=== PATIENT | female | born 1970 | race Caucasian/White ===

== ENCOUNTER 2017-05-06 19:15 | Emergency (ER) | payer MEDICARE, MEDICAID ==
[~2017-05-06] VITALS: Ht 165.1 cm; Wt 99.0 kg
[~2017-05-06 19:15] MED LIST: ALBU2.5I INH; ATEN-100 PO; GLUCTAB PO; HYDR12.56 PO; IPRAAER INH; LOVA20TA PO; NEXI40CA PO; TIZA2CAP PO; Z.0.OXYGEN INH
[2017-05-06 19:18] VITALS: BP 133/71; PULSE 78; RESP 16; TEMP 98.7; O2SAT 97
[2017-05-06] MEDS ORDERED: ACETAMINOPHEN 325 MG TAB PO ONE (19:30)
[2017-05-06] MEDS ORDERED: FLUT1INH7 INH (19:36)
[2017-05-06] MEDS ORDERED: LOVA20TA PO (19:36)
[2017-05-06] MEDS ORDERED: GABA300C5 PO (19:36)
[2017-05-06] MEDS ORDERED: LISI10TA3 PO (19:36)
[2017-05-06] MEDS ORDERED: NEXI40CA PO (19:36)
[2017-05-06] MEDS ORDERED: IPRAAER INH (19:36)
[2017-05-06] MEDS ORDERED: TOPA25TA8 PO (19:36)
--- NOTE | 2017-05-06 19:46 | PD ---
HPI Chief Complaint: Injury Time Seen by Provider: 19:41 Travel History International Travel<30 days: No Contact w/Intl Traveler<30days: No Traveled to known affect area: No History of Present Illness HPI 47-year-old white female presents emergency Department with complaints of right ankle pain after an inversion injury going up a set of stairs prior to arrival. She states that she heard a pop not a crack. She thinks that she may have torn a ligament or possibly fractured her ankle. Patient reports an injury last week to her right ankle and was seen at [facility] an x-ray was performed at that time. She was given Francisco wrap and crutches. She was given a prescription for Ultram which she has not filled yet. She has been taking Tylenol. She states the pain is moderate. She is unable to bear weight. She did not fall to the ground. No other injuries. No head, neck or back injury. PFSH Past Medical History Arthritis: Yes Asthma: Yes Blood Disorders: No Heart Rhythm Problems: Yes (ANGINA) Cancer: No Cardiac Catheterization: No Cardiovascular Problems: Yes High Cholesterol: Yes Chemotherapy: No Congestive Heart Failure: No COPD: Yes Diabetes: Yes Patient Takes Glucophage: No Endocrine: No Gastrointestinal Disorders: Yes (CROHNS DISEASE) GERD: Yes Gout: Yes Genitourinary: No Hepatitis: No Hiatal Hernia: No Hypertension: Yes Immune Disorder: No Musculoskeletal: No Neurologic: No Psychiatric: No Reproductive: No Respiratory: Yes Myocardial Infarction: Yes Radiation Therapy: No Sleep Apnea: Yes ( O2 AT NIGHT) Ulcer: No Tetanus Vaccination: < 5 Years Influenza Vaccination: No ?: Not Menopausal: Yes : 7 Para: 3 Miscarriage: 3 : 1 Tubal Ligation: Yes Past Surgical History Abdominal Surgery: Yes (LOWER ABD/ulcer) AICD: No Appendectomy: No Arteriovenous Shunt: No Cardiac Surgery: No Section: Yes (X 2) Cholecystectomy: No Coronary Artery Bypass Graft: No Ear Surgery: No Endocrine Surgery: No Eye Surgery: No Genitourinary Surgery: No Gynecologic Surgery: Yes (ABLATION) Insulin Pump: No Joint Replacement: No Oral Surgery: No Pacemaker: No Thoracic Surgery: No Tonsillectomy: Yes Other Surgery: Yes (BANDED HEMMRHOID) Family History Family Myocardial Infarction: Yes (FATHER) Social History Alcohol Use: No Tobacco Use: No (QUIT MARCH 29, ) Substance Use: No Allergies-Medications (Allergen,Severity, Reaction): Coded Allergies: Morphine (Verified Allergy, Severe, Anaphylaxis, 05/06/17) Ofloxacin (Verified Allergy, Severe, Anaphylaxis, 05/06/17) Aspirin (Verified Allergy, Intermediate, Rash, 05/06/17) RED RAISED RASH Codeine (Verified Allergy, Intermediate, Rash, 05/06/17) Uncoded Allergies: VICODIN (Allergy, Severe, Anaphylaxis, 11/20/06) ORAGEL (Allergy, Intermediate, Rash, 09/05/14) red wine (Allergy, Mild, 05/06/17) Reported Meds & Prescriptions Reported Meds & Active Scripts Active Reported Topamax (Topiramate) 25 Mg Tab 25 Mg PO PRN PRN Gabapentin 300 Mg Cap 300 Mg PO BID Nexium (Esomeprazole DR) 40 Mg Capdr 40 Mg PO BID Combivent Respimat Inh (Ipratropium-Albuterol Inh) 20-100 Care Home/Act Aero 2 Puff INH DAILY Breo Ellipta Inh (Fluticasone/Vilanterol) 200-25 Mcg/Act Inh 1 Puff INH DAILY Use daily at the same time. Lovastatin 20 Mg Tab 20 Mg PO DAILY Lisinopril 10 Mg Tab 10 Mg PO DAILY Review of Systems Except as stated in HPI: all other systems reviewed are Neg Physical Exam Narrative GENERAL: This is a morbidly obese, well-developed patient, in no apparent distress. SKIN: No rashes, ecchymoses or lesions. Warm and dry. HEAD: Atraumatic. Normocephalic. EYES: PERRL, EOMI, no discharge or injection. No scleral icterus. EARS: Clear NOSE: Nasal turbinates appear normal. THROAT: Mucosa pink and moist. Airway patent. NECK: Trachea midline. supple, moves head freely. LUNGS: Clear to auscultation. CV: Regular in rhythm. ABDOMEN: Soft nontender. EXT: No clubbing cyanosis. Examination of the right lower extremity reveals diffuse swelling in the ankle with tenderness to the anterior talar fibular as well as her deltoid ligaments of the ankle. There is no significant pain over the medial lateral malleolus. No pain in the Achilles or heel. No distal forefoot pain. Toes are normal. Skin is intact. No erythema. She has good pulses asleep. Good Refill. No pain in the or hip. The left lower extremity as well as upper extremities are unremarkable for acute bony tenderness or deformity. Data Data Last Documented VS Vital Signs Date Time Temp Pulse Resp B/P Pulse Ox O2 Delivery O2 Flow Rate FiO2 05/06/17 19:27 18 Room Air 05/06/17 19:18 98.7 78 133/71 97 Orders Ankle, Complete ([id number]) (05/06/17 19:29) Ice/Cold Pack (05/06/17 19:29) Acetaminophen (Tylenol) (05/06/17 19:30) Tramadol (Ultram) (05/06/17 20:30) Splint Or Brace Apply/Monitor (05/06/17 20:23) MDM Medical Decision Making Medical Screen Exam Complete: Yes Emergency Medical Condition: Yes Medical Record Reviewed: Yes Interpretation(s) Right ankle: Negative for acute fracture Differential Diagnosis MDM: High Differential diagnoses: Fracture, sprain, strain, dislocation, contusion, neurovascular injury Narrative Course Patient's given ice pack, 650 Tylenol by mouth. X-ray of the right ankle. Diagnosis Primary Impression: Right ankle sprain Qualified Code: S93.401A - Sprain of right ankle, unspecified ligament, initial encounter Patient Instructions: General Instructions Additional Instructions: Rest. Elevation. Ice packs for the next 3 days. Cam Walker and crutches. No weight-bearing and then progress to weight-bearing as tolerated. Medications as directed Follow-up with an orthopedist or your doctor in one week. Return to the ER if any problems Med/Other Pt SpecificInfo: No Change to Meds Disposition: 01 DISCHARGE HOME Condition: Stable Dru Meade May 06, 2017 19:46
[2017-05-06] MEDS ORDERED: traMADol HCL 50 MG TAB PO ONE (20:30)
--- NOTE | 2017-05-06 20:40 | RADRPT ---
EXAM DATE/TIME: 05/06/2017 20:00 [facility] COMPARISON: No previous studies available for comparison. INDICATIONS : Ankle pain, rolled ankle walking down stairs. MEDICAL HISTORY : None. SURGICAL HISTORY : None. ENCOUNTER: Initial ACUITY: 1 day PAIN SCORE: 10/10 LOCATION: Right ankle FINDINGS: The examination was performed. There is prominent soft tissue swelling about the medial and lateral aspect of the ankle. The osseous structures are grossly intact radiocarpal mortise is intact. No fr acture seen. No radiopaque foreign bodies. CONCLUSION: Prominent soft tissue swelling about the ankle. No fracture seen. Nick Macdonald MD on May 06, 2017 at 20:22 Board Certified Radiologist. This report was verified electronically.
== END 2017-05-06 22:17 | disposition home or self-care (01) ==
LOC: NEPD 19:15
DX: S93.401A Sprain of unspecified ligament of right ankle, initial encounter (principal); X50.1XXA Overexertion from prolonged static or awkward postures, initial encounter; J45.909 Unspecified asthma, uncomplicated; J44.9 Chronic obstructive pulmonary disease, unspecified; E11.9 Type 2 diabetes mellitus without complications; K21.9 Gastro-esophageal reflux disease without esophagitis; I10 Essential (primary) hypertension; I25.2 Old myocardial infarction
CPT/HCPCS: 73610; 99283; E0113; L2114

== ENCOUNTER 2017-07-15 11:02 | Emergency (ER) | payer MEDICARE, MEDICAID ==
[~2017-07-15 11:02] MED LIST changes: -ALBU2.5I INH; -ATEN-100 PO; +FLUT1INH7 INH; +GABA300C5 PO; -GLUCTAB PO; -HYDR12.56 PO; +LISI10TA3 PO; -TIZA2CAP PO; +TOPA25TA8 PO; -Z.0.OXYGEN INH
[2017-07-15 13:10] LABS: BICARBONATE 27.2 MEQ/L (21.0-32.0)
[2017-07-15 13:21] LABS: AUTOMATED NEUTROPHIL # 3.2 TH/MM3 (1.8-7.7); BASOPHIL % 0.7 % (0.0-2.0); EOSINOPHIL # 0.1 TH/MM3 (0-0.4); EOSINOPHIL % 1.8 % (0.0-4.0); HEMATOCRIT 33.9 % (35.0-46.0); HEMO FLAGS DIFF FINAL; LYMPHOCYTE # 2.6 TH/MM3 (1.0-4.8); MEAN CELL VOLUME 86.7 FL (80.0-100.0); MEAN CORPUSCULAR HEMOGLOBIN 28.5 PG (27.0-34.0); MEAN CORPUSCULAR HGB CONC 32.9 % (32.0-36.0); MONO % 8.3 % (0.0-8.0); NEUT % 49.2 % (16.0-70.0); PLATELET COUNT 209 TH/MM3 (150-450); RED BLOOD COUNT 3.91 MIL/MM3 (4.00-5.30); RED CELL DISTRIBUTION WIDTH 14.9 % (11.6-17.2); WHITE BLOOD COUNT 6.5 TH/MM3 (4.0-11.0)
[2017-07-15 13:49] LABS: BLOOD, URINE NEG (NEG); COMMENT (UR) CULT NOT INDICATED; CULTURE IF INDICATED CULT NOT INDICATED; GLUCOSE,URINE NEG (NEG); KETONE, URINE NEG (NEG); MUCUS URINE FEW /lpf (OCC); NITRITE,URINE NEG (NEG); PH, URINE 5.5 (5.0-8.5); SQUAMOUS EPITHELIAL CELL URINE 3 /hpf (0-5); URINE COLOR YELLOW (YELLW/STRAW)
--- NOTE | 2017-07-15 14:49 | PD ---
HPI Chief Complaint: Abdominal Pain Time Seen by Provider: 13:22 Travel History International Travel<30 days: No Contact w/Intl Traveler<30days: No Traveled to known affect area: No History of Present Illness HPI Patient is a 47 year old female who comes in complaining of right sided abdominal pain. She says the pain started 4 days ago and got worse today. She says she has nausea and vomiting as well as diarrhea. She says she has had " low grade fever" of 99.9 or 100. She denies any dysuria. She denies any radiation of the pain. PFSH Past Medical History Arthritis: Yes Asthma: Yes Blood Disorders: No Heart Rhythm Problems: Yes (ANGINA) Cancer: No Cardiac Catheterization: No Cardiovascular Problems: Yes High Cholesterol: Yes Chemotherapy: No Congestive Heart Failure: No COPD: Yes Diabetes: Yes Endocrine: No Gastrointestinal Disorders: Yes (CROHNS DISEASE) GERD: Yes Gout: Yes Genitourinary: No Hepatitis: No Hiatal Hernia: No Hypertension: Yes Immune Disorder: No Musculoskeletal: No Neurologic: No Psychiatric: No Reproductive: No Respiratory: Yes Myocardial Infarction: Yes Radiation Therapy: No Sleep Apnea: Yes ( O2 AT NIGHT) Ulcer: No Menopausal: Yes : 7 Para: 3 Miscarriage: 3 : 1 Tubal Ligation: Yes Past Surgical History Abdominal Surgery: Yes (LOWER ABD/ulcer) AICD: No Appendectomy: No Arteriovenous Shunt: No Cardiac Surgery: No Section: Yes (X 2) Cholecystectomy: No Coronary Artery Bypass Graft: No Ear Surgery: No Endocrine Surgery: No Eye Surgery: No Genitourinary Surgery: No Gynecologic Surgery: Yes (ABLATION) Insulin Pump: No Joint Replacement: No Oral Surgery: No Pacemaker: No Thoracic Surgery: No Tonsillectomy: Yes Other Surgery: Yes (BANDED HEMMRHOID) Social History Alcohol Use: No Tobacco Use: No (QUIT MARCH 29, ) Substance Use: No Allergies-Medications (Allergen,Severity, Reaction): Coded Allergies: morphine (Unverified Allergy, Severe, Anaphylaxis, 07/10/17) ofloxacin (Unverified Allergy, Severe, Anaphylaxis, 07/10/17) aspirin (Unverified Allergy, Intermediate, Rash, 07/10/17) RED RAISED RASH codeine (Unverified Allergy, Intermediate, Rash, 07/10/17) Uncoded Allergies: VICODIN (Allergy, Severe, Anaphylaxis, 11/20/06) ORAGEL (Allergy, Intermediate, Rash, 09/05/14) red wine (Allergy, Mild, 05/06/17) Reported Meds & Prescriptions Reported Meds & Active Scripts Active Reported Topamax (Topiramate) 25 Mg Tab 25 Mg PO PRN PRN Gabapentin 300 Mg Cap 300 Mg PO BID Nexium (Esomeprazole DR) 40 Mg Capdr 40 Mg PO BID Combivent Respimat Inh (Ipratropium-Albuterol Inh) 20-100 Alf/Act Aero 2 Puff INH DAILY Breo Ellipta Inh (Fluticasone/Vilanterol) 200-25 Mcg/Act Inh 1 Puff INH DAILY Use daily at the same time. Lovastatin 20 Mg Tab 20 Mg PO DAILY Lisinopril 10 Mg Tab 10 Mg PO DAILY Review of Systems Except as stated in HPI: all other systems reviewed are Neg General / Constitutional: Positive: Fever HENT: No: Headaches, Lightheadedness Cardiovascular: No: Chest Pain or Discomfort Respiratory: No: Shortness of Breath Gastrointestinal: Positive: Nausea, Vomiting, Diarrhea, Abdominal Pain Genitourinary: No: Dysuria, Flank Pain Musculoskeletal: No: Edema, Pain Skin: No Rash, No Change in Pigmentation Neurologic: No: Weakness, Dizziness Physical Exam Narrative GENERAL: Awake and alert, in no acute distress. SKIN: Focused skin assessment warm/dry. HEAD: Atraumatic. Normocephalic. EYES: Pupils equal and round. No scleral icterus. ENT: No nasal bleeding or discharge. Mucous membranes pink and moist. NECK: Trachea midline. No JVD. CARDIOVASCULAR: Regular rate and rhythm. No murmur appreciated. RESPIRATORY: No accessory muscle use. Clear to auscultation. Breath sounds equal bilaterally. GASTROINTESTINAL: Abdomen soft, nondistended. Tender to palpation of the RLQ, no rebound or guarding. MUSCULOSKELETAL: No obvious deformities. No clubbing. No cyanosis. No edema. NEUROLOGICAL: Awake and alert. No obvious cranial nerve deficits. Motor grossly within normal limits. Normal speech. PSYCHIATRIC: Appropriate mood and affect; insight and judgment normal. Data Data Orders Orders Urinalysis - C+S If Indicated (07/15/17 11:50) Complete Blood Count With Diff (07/15/17 11:50) Basic Metabolic Profile, Op (07/15/17 11:50) Lipase (07/15/17 11:50) Ct Abd/Pel W/O Iv Contrast (07/15/17 11:52) Iohexol 350 Inj (Omnipaque 350 Inj) (07/15/17 14:50) Ct Abd/Pel W Iv Contrast(Rout) (07/15/17 ) Labs Laboratory Tests Test 07/15/17 11:50 White Blood Count 6.5 TH/MM3 Red Blood Count 3.91 MIL/MM3 Hemoglobin 11.1 GM/DL Hematocrit 33.9 % Mean Corpuscular Volume 86.7 FL Mean Corpuscular Hemoglobin 28.5 PG Mean Corpuscular Hemoglobin Concent 32.9 % Red Cell Distribution Width 14.9 % Platelet Count 209 TH/MM3 Mean Platelet Volume 9.5 FL Neutrophils (%) (Auto) 49.2 % Lymphocytes (%) (Auto) 40.0 % Monocytes (%) (Auto) 8.3 % Eosinophils (%) (Auto) 1.8 % Basophils (%) (Auto) 0.7 % Neutrophils # (Auto) 3.2 TH/MM3 Lymphocytes # (Auto) 2.6 TH/MM3 Monocytes # (Auto) 0.5 TH/MM3 Eosinophils # (Auto) 0.1 TH/MM3 Basophils # (Auto) 0.0 TH/MM3 CBC Comment DIFF FINAL Differential Comment Urine Color YELLOW Urine Turbidity HAZY Urine pH 5.5 Urine Specific [place] 1.018 Urine Protein NEG mg/dL Urine Glucose (UA) NEG mg/dL Urine Ketones NEG mg/dL Urine Occult Blood NEG Urine Nitrite NEG Urine Bilirubin NEG Urine Urobilinogen LESS THAN 2.0 MG/DL Urine Leukocyte Esterase SMALL Urine RBC 1 /hpf Urine WBC 3 /hpf Urine Squamous Epithelial Cells 3 /hpf Urine Mucus FEW /lpf Microscopic Urinalysis Comment CULT NOT INDICATED Sodium Level 142 MEQ/L Potassium Level 4.0 MEQ/L Chloride Level 108 MEQ/L Carbon Dioxide Level 27.2 MEQ/L Anion Gap 7 MEQ/L Blood Urea Nitrogen 13 MG/DL Creatinine 0.69 MG/DL Estimat Glomerular Filtration Rate 90 ML/MIN Fasting Glucose 152 MG/DL Calcium Level 8.8 MG/DL Lipase 228 U/L [facility] Medical Decision Making Medical Screen Exam Complete: Yes Emergency Medical Condition: Yes Medical Record Reviewed: Yes Differential Diagnosis Appendicitis versus ovarian cyst versus colitis versus gastroenteritis Narrative Course Patient is a 47-year-old female who comes in complaining of abdominal pain with nausea, vomiting, diarrhea. Exam shows some right-sided abdominal tenderness, without rebound or guarding. IV established, labs sent. Labs show no acute abnormalities. She is given IV fluids, Dilaudid, Zofran. CT abdomen and pelvis shows no acute abnormalities. Patient reports feeling a little better. She says she has antinausea medication at home. She'll follow- up with her doctor tomorrow. She is advised to drink plenty of fluids. Advised to eat a bland diet. Advised to return to the ED as needed for any worsening symptoms. Diagnosis Primary Impression: Abdominal pain Qualified Codes: R10.84 - Generalized abdominal pain Additional Impression: Nausea & vomiting Qualified Codes: R11.2 - Nausea with vomiting, unspecified Patient Instructions: Abdominal Pain (ED), Acute Nausea and Vomiting (ED), General Instructions Additional Instructions: Drink plenty of fluids. Follow-up with their doctor. Avoid fatty foods and eat a bland diet. Return to the ED as needed for any worsening symptoms. Disposition: 01 DISCHARGE HOME Condition: Stable Chanel Benitez MD Jul 15, 2017 14:48
[2017-07-15] MEDS ORDERED: IOHEXOL 350 MG/ML 10 ML VIAL (for RAD DIAG) IVCONTRAST ONE (14:50)
--- NOTE | 2017-07-15 14:58 | RADRPT ---
EXAM DATE/TIME: 07/15/2017 14:37 [facility] COMPARISON: No previous studies available for comparison. INDICATIONS : Right abdominal pain. ORAL CONTRAST: No oral contrast ingested. RADIATION DOSE: 16.84 CTDIvol (mGy) MEDICAL HISTORY : Cardiovascular disease. Hypertension. Diabetes, Crohns SURGICAL HISTORY : Tubal ligation. abdominal ulcer, ablation ENCOUNTER: Initial ACUITY: 1 day PAIN SCALE: 9/10 LOCATION: Right abdominal. TECHNIQUE: Volumetric scanning of the abdomen and pelvis was performed. Using automated exposure control and ad justment of the mA and/or kV according to patient size, radiation dose was kept as low as reasonably achievable to obtain optimal diagnostic quality images. DICOM format image data is available electro nically for review and comparison. FINDINGS: LOWER LUNGS: The visualized lower lungs are clear. LIVER: Homogeneous density without lesion. There is no dilation of the biliary tree. No calcified gallston es. Liver is enlarged. SPLEEN: Normal size without lesion. PANCREAS: Within normal limits. KIDNEYS: Normal in size and shape. There is no mass, stone, or hydronephrosis. ADRENAL GLANDS: Within normal limits. VASCULAR: There is no aortic aneurysm. BOWEL/MESENTERY: The stomach, small bowel, and colon demonstrate no acute abnormality. There is no free intraperitone al air or fluid. Previous surgery along the greater curvature the stomach. Normal appendix. ABDOMINAL WALL: Small fat containing ventral wall hernia.. RETROPERITONEUM: There is no lymphadenopathy. BLADDER: No wall thickening or mass. REPRODUCTIVE: Within normal limits. INGUINAL: There is no lymphadenopathy or hernia. MUSCULOSKELETAL: Within normal limits for patient age. CONCLUSION: 1. No acute inflammatory process. 2. Hepatomegaly. 3. Small fat containing ventral wall hernia. Edwin Ireland MD on July 15, 2017 at 14:53 Board Certified Radiologist. This report was verified electronically.
== END 2017-07-15 16:21 | disposition home or self-care (01) ==
LOC: NED 11:02 → NEPC 16:21
DX: R10.84 Generalized abdominal pain (principal); R11.2 Nausea with vomiting, unspecified; R19.7 Diarrhea, unspecified; E11.9 Type 2 diabetes mellitus without complications; I10 Essential (primary) hypertension; J44.9 Chronic obstructive pulmonary disease, unspecified; K50.90 Crohn's disease, unspecified, without complications; M10.9 Gout, unspecified; K21.9 Gastro-esophageal reflux disease without esophagitis
CPT/HCPCS: 74176; 74177; 80048; 81001; 83690; 85025; 99284; Q9967

== ENCOUNTER 2018-07-11 18:34 | Inpatient (IN) ==
[2018-07-11] MEDS ORDERED: Sod Chloride 0.9% Inj 1,000 ML IV.SIG ONE (21:29)
[2018-07-11] MEDS ORDERED: Piperacil/Tazo 3.375 GM Premix 50 ML IV.SIG ONE (21:29)
[2018-07-11] MEDS ORDERED: Vancomycin Inj 1 GM/200 ML PIGGYBACK IV.SIG ONE (21:29)
--- NOTE | 2018-07-11 21:33 | ED ---
HPI General Chief complaint: Skin/Abscess/Foreign Body Stated complaint: Skin Time Seen by Provider: 07/11/18 21:24 History of Present Illness HPI narrative: 48-year-old female with history of diabetes presents for evaluation of fever and right buttocks pain. Symptoms started 4 days ago. She reports pain and swelling to the right buttocks with fevers as high as 102.2, typically improved with use of Tylenol. Pain is throbbing, constant, aggravated by sitting. Denies any rectal pain, nausea vomiting, cough or congestion, chest pain or shortness of breath, drainage. No other complaints. Primary care physician is Dr. Lao. Related Data Home Medications Medication Instructions Recorded Confirmed fluticasone-vilanterol [Breo 1 inh INHALATION DAILY 07/11/18 07/11/18 Ellipta] gabapentin 300 mg PO DAILY 07/11/18 07/11/18 ipratropium-albuterol [Combivent 1 puff INHALATION Q6H 07/11/18 07/11/18 Respimat] lisinopril 40 mg PO DAILY 07/11/18 07/11/18 lovastatin 10 mg PO DAILY 07/11/18 07/11/18 metformin 1,000 mg PO BID 07/11/18 07/11/18 propranolol [Inderal XL] 120 mg PO DAILY 07/11/18 07/11/18 sulfadiazine 500 mg PO DAILY 07/11/18 07/11/18 Allergies Allergy/AdvReac Type Severity Reaction Status Date / Time morphine Allergy Severe Anaphylaxis Unverified 07/10/17 19:20 ofloxacin Allergy Severe Anaphylaxis Unverified 07/10/17 19:20 aspirin Allergy Intermediate Rash Unverified 07/10/17 19:20 codeine Allergy Intermediate Rash Unverified 07/10/17 19:20 VICODIN Allergy Severe Anaphylaxis Uncoded 11/20/06 02:07 ORAGEL Allergy Intermediate Rash Uncoded 09/05/14 10:40 red wine Allergy Mild Uncoded 05/06/17 19:32 Review of Systems ROS: all other systems reviewed are negative [facility] Medical History Medical History COPD (chronic obstructive pulmonary disease) (Acute) Chiari malformation (Acute) Diabetes (Acute) Gout (Acute) Heart attack (Acute) Hernia (Acute) IBS (irritable bowel syndrome) (Acute) Sepsis (Acute) Skin cancer of arm (Acute) Tumor cells, benign (Acute) Surgical History Surgical History Personal history of gastric banding (Acute) Social History Social History Substance History: Past History Smoking Status: Former smoker How Often Do You Have a Drink Containing Alcohol: Never Recent Travel in [facility] within the Last 8 Weeks: No Recent Out of Country Travel within the Last 8 Weeks: No Exam Narrative Exam Narrative: Examined in the presence of a female nurse GENERAL: Well-developed well-nourished female no acute distress. SKIN: Warm and dry. Examination of the right buttocks reveals focal area of skin erythema and excoriation, there is diffuse induration. No fluctuance. HEAD: Atraumatic. Normocephalic. EYES: Pupils equal and round. No scleral icterus. No injection or drainage. ENT: No nasal bleeding or discharge. Mucous membranes pink and moist. NECK: Trachea midline. No JVD. CARDIOVASCULAR: Regular rate and rhythm. No murmur appreciated. RESPIRATORY: No accessory muscle use. Clear to auscultation. Breath sounds equal bilaterally. GASTROINTESTINAL: Abdomen soft, non-tender, nondistended. Hepatic and splenic margins not palpable. MUSCULOSKELETAL: No obvious deformities. No clubbing. No cyanosis. No edema. NEUROLOGICAL: Awake and alert. No obvious cranial nerve deficits. Motor grossly within normal limits. Normal speech. Course Initial Documented Vital Signs Temperature 99.0 F 07/11/18 18:41 Pulse Rate 94 H 07/11/18 18:41 Respiratory Rate 18 07/11/18 18:41 Blood Pressure 127/87 07/11/18 18:41 Pulse Oximetry 96 07/11/18 18:41 Last Documented Vital Signs Temperature 99.4 F 07/12/18 06:30 Pulse Rate 82 07/12/18 06:27 Respiratory Rate 17 07/12/18 06:27 Blood Pressure 120/61 07/12/18 06:27 Pulse Oximetry 99 07/12/18 08:00 Medical Decision Making DAGOBERTO Attestation DAGOBERTO supervised visit: Yes Attestation: I was present with the advanced practitioner during the management of this patient. I discussed the case with the advanced practitioner and agree with the findings and plan as documented in their note except as noted below. 48yF presenting with fevers, chills, myalgias, and right buttock sore. The patient says that she has a history of MRSA and sepsis in the past; 4 days ago, she noticed a "sore" on her right buttocks which has since spread across to her lateral buttocks, associated with fever of 102F+, chills, and myalgias. She also has a history of DM but says that her glucose has been fairly well- controlled during this time period. No acute distress NCAT, PERRL RRR Lungs clear bilaterally Abdomen soft, non-tender 1 cm circular wound to right buttock near cleft with 7 cm surrounding area of erythema, warmth, and tenderness but no fluctuance. No drainage. A&Ox3, no focal neuro deficits A/P: 48yF presenting with cellulitis/ wound to right buttock and fever IV fluids Labs, including cultures and lactate Antibiotics CT abd/ pelvis Differential includes abscess/ cellulitis, necrotizing soft tissue infection MDM Narrative Medical decision making narrative: Lab work and imaging studies were obtained revealing focal induration of the right buttocks subcutaneous tissue without abscess. At this point time the plan will be to admit the patient for IV antibiotic therapy. She was given vancomycin and Zosyn here. Medical Screen Exam Complete: Yes Emergency Medical Condition: Yes Differential Diagnosis Differential Diagnosis: Abscess, cellulitis, myositis, sepsis Lab Data Result diagrams: 07/11/18 21:44 07/11/18 21:44 Lab Results 07/11/18 07/11/18 07/11/18 Range/Units 21:44 21:44 21:44 WBC 11.6 H (4.0-11.0) th/mm3 RBC 4.22 (4.00-5.30) mil/mm3 Hgb 11.9 (11.6-15.3) gm/dL Hct 36.2 (35.0-46.0) % MCV 85.8 (80.0-100.0) fL MCH 28.2 (27.0-34.0) pg MCHC 32.9 (32.0-36.0) % RDW 14.1 (11.6-17.2) % Plt Count 238 (150-450) th/mm3 MPV 9.0 (7.0-11.0) fL Neut % (Auto) 75.0 H (16.0-70.0) % Lymph % (Auto) 15.9 (9.0-44.0) % [place] % (Auto) 7.9 (0.0-8.0) % Eos % (Auto) 0.7 (0.0-4.0) % Baso % (Auto) 0.5 (0.0-2.0) % Neut # (Auto) 8.7 H (1.8-7.7) th/mm3 Lymph # (Auto) 1.8 (1.0-4.8) th/mm3 [place] # (Auto) 0.9 (0.0-0.9) th/mm3 Eos # (Auto) 0.1 (0.0-0.4) th/mm3 Baso # (Auto) 0.1 (0.0-0.2) th/mm3 WBC Differential . Differential Comment Auto diff final Sodium 139 (136-145) meq/L Potassium 3.6 (3.5-5.1) meq/L Chloride 105 (98-107) meq/L Carbon Dioxide 25.3 (21.0-32.0) meq/L Anion Gap 9 (5-15) meq/L BUN 15 (7-18) mg/dL Creatinine 0.74 (0.50-1.00) mg/dL Estimated GFR 83 L (>89) mL/min POC Glucose (68-110) mg/dl Random Glucose 176 H (74-106) mg/dL Lactic Acid 1.4 (0.4-2.0) mmol/L Calcium 9.2 (8.5-10.1) mg/dL Total Bilirubin 0.3 (0.2-1.0) mg/dL AST 8 L (15-37) U/L ALT 15 (10-53) U/L Alkaline Phosphatase 90 (45-117) U/L Total Protein 7.8 (6.4-8.2) g/dL Albumin 3.4 (3.4-5.0) g/dL 07/12/18 Range/Units 09:42 WBC (4.0-11.0) th/mm3 RBC (4.00-5.30) mil/mm3 Hgb (11.6-15.3) gm/dL Hct (35.0-46.0) % MCV (80.0-100.0) fL MCH (27.0-34.0) pg MCHC (32.0-36.0) % RDW (11.6-17.2) % Plt Count (150-450) th/mm3 MPV (7.0-11.0) fL Neut % (Auto) (16.0-70.0) % Lymph % (Auto) (9.0-44.0) % [place] % (Auto) (0.0-8.0) % Eos % (Auto) (0.0-4.0) % Baso % (Auto) (0.0-2.0) % Neut # (Auto) (1.8-7.7) th/mm3 Lymph # (Auto) (1.0-4.8) th/mm3 [place] # (Auto) (0.0-0.9) th/mm3 Eos # (Auto) (0.0-0.4) th/mm3 Baso # (Auto) (0.0-0.2) th/mm3 WBC Differential Differential Comment Sodium (136-145) meq/L Potassium (3.5-5.1) meq/L Chloride (98-107) meq/L Carbon Dioxide (21.0-32.0) meq/L Anion Gap (5-15) meq/L BUN (7-18) mg/dL Creatinine (0.50-1.00) mg/dL Estimated GFR (>89) mL/min POC Glucose 133 H (68-110) mg/dl Random Glucose (74-106) mg/dL Lactic Acid (0.4-2.0) mmol/L Calcium (8.5-10.1) mg/dL Total Bilirubin (0.2-1.0) mg/dL AST (15-37) U/L ALT (10-53) U/L Alkaline Phosphatase (45-117) U/L Total Protein (6.4-8.2) g/dL Albumin (3.4-5.0) g/dL Imaging Data Radiologist's impression: Abdomen/Pelvis CT 07/12/18 00:00 CONCLUSION: Induration within the posterior medial right gluteal subcutaneous fat consistent with inflammatory change. An abscess is not seen. Discharge Plan Discharge Disposition Patient Disposition: 30 Still Patient Discharge Condition Condition: Stable Discharge Details Diagnosis: Cellulitis Physicians Team ED Provider: Aspen Oliveira ED Midlevel Provider: Steven Dougherty Primary Care Provider: Primary Care Yarelisi,Flores Attending Provider: Fabian Julian Status ED Status: Left Department Discharge Information Discharge Date/Time: 07/12/18 07:28
[2018-07-11] MEDS ORDERED: Vancomycin Inj 1,000 MG in Sodium Chlor 0.9% Inj 250 ML IV.SIG ONE (21:45)
[2018-07-11 22:16] LABS: Baso # (Auto) 0.1 th/mm3 (0.0-0.2); Baso % (Auto) 0.5 % (0.0-2.0); Eos # (Auto) 0.1 th/mm3 (0.0-0.4); Eos % (Auto) 0.7 % (0.0-4.0); Hematocrit 36.2 % (35.0-46.0); Hemoglobin 11.9 gm/dL (11.6-15.3); Lymph # (Auto) 1.8 th/mm3 (1.0-4.8); Lymph % (Auto) 15.9 % (9.0-44.0); Mean Corpuscular HGB Conc 32.9 % (32.0-36.0); Mean Corpuscular Hemoglobin 28.2 pg (27.0-34.0); Mean Corpuscular Volume 85.8 fL (80.0-100.0); Mono # (Auto) 0.9 th/mm3 (0.0-0.9); Mono % (Auto) 7.9 % (0.0-8.0); Neut # (Auto) 8.7 th/mm3 (1.8-7.7); Platelet Count 238 th/mm3 (150-450); Red Blood Count 4.22 mil/mm3 (4.00-5.30); Red Cell Distribution Width 14.1 % (11.6-17.2); White Blood Count 11.6 th/mm3 (4.0-11.0)
[2018-07-11 22:40] LABS: Albumin 3.4 g/dL (3.4-5.0); Anion Gap 9 meq/L (5-15); Aspartate Aminotransferase 8 U/L (15-37); Blood Urea Nitrogen 15 mg/dL (7-18); Calcium 9.2 mg/dL (8.5-10.1); Carbon Dioxide 25.3 meq/L (21.0-32.0); Chloride 105 meq/L (98-107); Glomerular Filtration Rate 83 mL/min (>89); Glucose,Random 176 mg/dL (74-106); Potassium 3.6 meq/L (3.5-5.1); Sodium 139 meq/L (136-145)
[2018-07-11 22:41] LABS: Alanine Aminotransferase 15 U/L (10-53)
[2018-07-11 22:43] LABS: Alkaline Phosphatase 90 U/L (45-117); Total Protein 7.8 g/dL (6.4-8.2)
--- NOTE | 2018-07-12 01:11 | CT ---
EXAM DATE: 07/12/2018 12:29 AM EDT AGE/SEX: 48 years / Female INDICATIONS: Buttock pain and fever, evaluate for abscess. CLINICAL DATA: This is the patient's initial encounter. Patient reports that signs and symptoms have been present for 4 - 6 days and indicates a pain score of 10/10. MEDICAL/SURGICAL HISTORY: Chronic obstructive pulmonary disease. Myocardial infarction. Irrit able bowel syndrome. Gastric bypass. ORAL CONTRAST: No oral contrast ingested. RADIATION DOSE: 20.32 CTDI (mGy) COMPARISON: No prior exams available for comparison. TECHNIQUE: Multiple contiguous axial images were obtained through the abdomen and pelvis following b olus infusion of 100 ml Omnipaque 350 (iohexol) nonionic water-soluble contrast as a single exam do se. No oral contrast ingested. Using automated exposure control and adjustment of the mA and/or kV a ccording to patient size, radiation dose was kept as low as reasonably achievable to obtain optimal d iagnostic quality images. DICOM format image data is available electronically for review and compari son. FINDINGS: There is induration in the subcutaneous fat at the posterior medial right gluteal region. A focal flu id collection to suggest an abscess is not seen at this time. The induration does extend to the midli ne at the level of the lower sacrum. The induration appears to be restricted to the subcutaneous fat. The soft tissues appear grossly normal. The area of induration measures approximately 13 cm in trans verse dimension, 6 cm in AP dimension and extends over 14 cm length. Lower Lungs: The visualized lower lungs are clear. Liver: The liver has a homogeneous density without space-occupying lesion. There is no dilation of th e biliary tree. Spleen: Homogeneous density without enlargement. Pancreas: Unremarkable without mass or calcification. Kidneys: Normal in size and shape. No evidence of mass or hydronephrosis. Adrenal Glands: Unremarkable. Aorta: The aorta and proximal iliac vessels are grossly unremarkable without aneurysmal dilation. Bowel/Mesentery: The bowel loops are grossly unremarkable. There appears to be a staple line along t he stomach. The cecum and sigmoid colon have a normal configuration. Abdominal Wall: No hernia is seen. There is diastases of the rectus muscles. Retroperitoneum: No evidence of adenopathy in the retrocrural, para-aortic, or deep pelvic regions. Bladder: Contours are smooth. Reproductive Organs: No abnormal masses or calcifications seen. Inguinal: The inguinal region is unremarkable without evidence of adenopathy. Bony Structures: Unremarkable. CONCLUSION: Induration within the posterior medial right gluteal subcutaneous fat consistent with inflammatory ch angelique. An abscess is not seen. Electronically signed by: Matt Sherman MD 07/12/2018 1:10 AM EDT
[2018-07-12] MEDS ORDERED: Vancomycin Consult Pharmacy OTHER SCH (01:35)
[2018-07-12] MEDS ORDERED: Dextrose 50% in Water 50 ML Vial IV.PUSH PRN (01:35)
[2018-07-12] MEDS ORDERED: Bisacodyl 10 MG Supp RECTAL PRN (01:36)
[2018-07-12] MEDS ORDERED: Vancomycin Inj 1,000 MG in Sodium Chlor 0.9% Inj 250 ML IV.SIG ONE (02:00)
--- NOTE | 2018-07-12 02:39 | P.HPIM ---
History of Present Illness Primary Care Physician: No Primary Care Physician History of Present Illness: This is a 48-year-old female with a PMH of DM, COPD, Gout and IBS presented to the ER with complaints of right gluteal pain x4 days. Reports right buttock pain and swelling, pain is constant, severe, 10/10, non-radiating. Notes associated fever of 102 at home. Denies injury or trauma to site. On arrival, BP 170/69, HR 83, O2 sat 100% on RA, Temp 100.3. BC 11.6. Chemistry unremarkable except for GFR 83. Lactic Acid normal. CT Abdomen/Pelvis with induration of posterior medial right gluteal subcutaneous fat consistent with inflammatory change, no abscess seen. S/p Vanc/Zosyn in ER - Diagnosis (1) SIRS (systemic inflammatory response syndrome) (2) Cellulitis (3) DM (diabetes mellitus) Inpatient Certification: I certify that the inpatient services were ordered in accordance with Medicare regulations governing the order. This includes certification that hospital inpatient services are reasonable and necessary and in the case of services not specified as inpatient-only under 42 CFR 419.22(n), that they are appropriately provided as inpatient services in accordance to with the 2-midnight benchmark under 43 CFR 412.3(e) Estimated Total Length of Stay (Days): 2 Plans for Post Hospital Care: Not yet determined Review of Systems PAST FAMILY HISTORY: Reviewed, positive for DM All other systems reviewed negative except as stated in HPI PMFSH - History History Provided By: Patient - Medical History Medical History: Medical History (Last Updated 07/11/18 @ 21:56 by Esperanza Lazo) COPD (chronic obstructive pulmonary disease) Chiari malformation Diabetes Gout Heart attack Hernia IBS (irritable bowel syndrome) Sepsis Skin cancer of arm Tumor cells, benign - Surgical History Surgical History: Surgical History (Last Updated 07/11/18 @ 21:56 by Esperanza Lazo) Personal history of gastric banding - Tobacco History Smoking Status: Former smoker - Alcohol History How Often Do You Have a Drink Containing Alcohol: Never - Substance Use History Substance History: Past History - Travel History Recent Travel in the [place] Within the Last 8 Weeks: No Recent Travel Out of the Country Within the Last 8 Weeks: No - Immunization History Tetanus Immunization: <5 Years Hx Influenza Vaccine This Season: Yes Medications and Allergies Active Medications: Active Medications Acetaminophen (Tylenol) 650 mg PO Q4H PRN PRN Reason: Temp > 100.4 Al Hydroxide/Mg Hydroxide (Milk Of Magnesia Liq) 30 ml PO Q12H PRN PRN Reason: Mild Constipation Bisacodyl (Dulcolax Supp) 10 mg RECTAL DAILY PRN PRN Reason: SEVERE CONSITIPATION Dextrose (D50w Vial) 50 ml IV.PUSH UNSCH PRN PRN Reason: PER HYPOGLYCEMIA PROTOCOL Fluticasone/Vilanterol (Breo Ellipta 100/25 Mcg Inh) 1 puff INH DAILY [facility] Gabapentin (Neurontin) 300 mg PO DAILY [facility] Glucagon (Glucagon Inj) 1 mg OTHER PRN PRN PRN Reason: for Hypoglycemia Protocol Sodium Chloride (Ns Inj) 1,000 mls @ 100 mls/hr IV.CONT .Q10H [facility] Piperacillin/Tazobactam/Dextrose (Zosyn 4.5 Gm Premix) 4.5 gm in 100 mls @ 200 mls/hr IV.SIG Q6H [facility] Vancomycin HCl 1,000 mg/ (Sodium Chloride) 250 mls @ 250 mls/hr IV.SIG ONCE ONE Stop: 07/12/18 02:59 Insulin Aspart (Novolog Insulin Correctional Sugar Inj) 0 unit SQ ACHS [facility]; Protocol Lactulose (Lactulose Liq) 30 ml PO DAILY PRN PRN Reason: SEVERE CONSITIPATION Ondansetron HCl (Zofran Inj) 4 mg IV.PUSH Q6H PRN PRN Reason: NAUSEA OR VOMITING Pharmacy Profile Note (Vancomycin Consult Pharmacy) 1 each OTHER UNSCH [facility] Propranolol HCl (Inderal La) 120 mg PO DAILY [facility] Senna/Docusate Sodium (Carrol-Colace) 1 tab PO BID [facility] Sennosides (Senokot) 17.2 mg PO Q12H PRN PRN Reason: Moderate Constipation Sodium Chloride (Ns Flush) 2 ml IV.FLUSH PRN PRN PRN Reason: FLUSH AFTER USING IV ACCESS Temazepam (Restoril) 15 mg PO HS PRN PRN Reason: INSOMNIA Allergies Allergy/AdvReac Type Severity Reaction Status Date / Time morphine Allergy Severe Anaphylaxis Unverified 07/10/17 19:20 ofloxacin Allergy Severe Anaphylaxis Unverified 07/10/17 19:20 aspirin Allergy Intermediate Rash Unverified 07/10/17 19:20 codeine Allergy Intermediate Rash Unverified 07/10/17 19:20 VICODIN Allergy Severe Anaphylaxis Uncoded 11/20/06 02:07 ORAGEL Allergy Intermediate Rash Uncoded 09/05/14 10:40 red wine Allergy Mild Uncoded 05/06/17 19:32 Home Medications Medication Instructions Recorded Confirmed Type fluticasone-vilanterol [Breo 1 inh INHALATION DAILY 07/11/18 07/11/18 History Ellipta] gabapentin 300 mg PO DAILY 07/11/18 07/11/18 History ipratropium-albuterol [Combivent 1 puff INHALATION Q6H 07/11/18 07/11/18 History Respimat] lisinopril 40 mg PO DAILY 07/11/18 07/11/18 History lovastatin 10 mg PO DAILY 07/11/18 07/11/18 History metformin 1,000 mg PO BID 07/11/18 07/11/18 History propranolol [Inderal XL] 120 mg PO DAILY 07/11/18 07/11/18 History sulfadiazine 500 mg PO DAILY 07/11/18 07/11/18 History Exam Vital signs: Vital Signs 07/11/18 18:41 07/11/18 18:47 07/11/18 23:00 Temperature 99.0 F 100.3 F H Pulse Rate 94 H 83 82 Respiratory Rate 18 18 18 Blood Pressure 127/87 170/69 H 140/74 Pulse Oximetry 96 100 100 07/11/18 23:11 07/12/18 00:52 Temperature 100.6 F H Pulse Rate 88 Respiratory Rate 17 Blood Pressure 144/72 H Pulse Oximetry 97 100 Intake & Output 07/11/18 07/11/18 07/12/18 06:59 18:59 06:59 Intake Total 1300 / 1300 Balance 1300 / 1300 Weight 122.924 kg Intake: IV 1300 / 1300 Zosyn 3.375 GM Premix 50 ML @ 50 / 50 100 mls/hr IV.SIG ONCE ONE Rx#: [id number] NS Inj 1,000 ML @ Wide Open IV. 1000 / 1000 SIG BOLUS ONE Rx#:[id number] Vancomycin Inj 1,000 MG In NS 250 / 250 Inj 250 ML @ 250 mls/hr IV.SIG ONCE ONE Rx#:[id number] Narrative: PE: GENERAL: Middle-aged white female in no acute distress. HEENT: PERRLA, EOMI. No scleral icterus or conjunctival pallor. No lid lag or facial droop. CARDIOVASCULAR: Regular rate and rhythm. No obvious murmurs to auscultation. No chest tenderness to palpation. RESPIRATORY: No obvious rhonchi or wheezing. Clear to auscultation. Breath sounds equal bilaterally. GASTROINTESTINAL: Abdomen soft, non-tender, nondistended. BS normal. MUSCULOSKELETAL: Extremities without clubbing, cyanosis, or edema. No obvious deformities. Right gluteal redness/induration w/ excoriation, sanguinous drainage. NEUROLOGICAL: Awake, alert and oriented x4. No focal neurologic deficits. Moving both upper and lower extremities spontaneously. Results - Labs CBC & Chem 7: 07/11/18 21:44 07/11/18 21:44 Labs: Short CBC 07/11/18 Range/Units 21:44 WBC 11.6 H (4.0-11.0) th/mm3 Hgb 11.9 (11.6-15.3) gm/dL Hct 36.2 (35.0-46.0) % Plt Count 238 (150-450) th/mm3 BMP 07/11/18 21:44 Sodium 139 Potassium 3.6 Chloride 105 Carbon Dioxide 25.3 BUN 15 Creatinine 0.74 Calcium 9.2 Liver Function 07/11/18 Range/Units 21:44 Total Bilirubin 0.3 (0.2-1.0) mg/dL AST 8 L (15-37) U/L ALT 15 (10-53) U/L Alkaline Phosphatase 90 (45-117) U/L Albumin 3.4 (3.4-5.0) g/dL - Imaging Impressions Abdomen/Pelvis CT 07/12/18 00:00 CONCLUSION: Induration within the posterior medial right gluteal subcutaneous fat consistent with inflammatory change. An abscess is not seen. Caprini VTE Risk Assessment Caprini VTE Risk Assessment: No/Low Risk (score <= 1) Caprini Risk Assessment Model: Point Value = 1 Point Value = 2 Point Value = 3 Point Value = 5 Age 41-60 Minor surgery BMI > 25 kg/m2 Swollen legs Varicose veins or History of unexplained or recurrent spontaneous Oral contraceptives or hormone replacement Sepsis (< 1 month) Serious lung disease, including pneumonia (< 1 month) Abnormal pulmonary function Acute myocardial infarction Congestive heart failure (< 1 month) History of inflammatory bowel disease Medical patient at bed rest Age 61-74 Arthroscopic surgery Major open surgery (> 45 min) Laparoscopic surgery (> 45 min) Malignancy Confined to bed (> 72 hours) Immobilizing plaster cast Central venous access Age >= 75 History of VTE Family history of VTE Factor V Leiden Prothrombin [id number] Lupus anticoagulant Anticardiolipin antibodies Elevated serum homocysteine Heparin-induced thrombocytopenia Other congenital or acquired thrombophilia Stroke (< 1 month) Elective arthroplasty Hip, pelvis, or leg fracture Acute spinal cord injury (< 1 month) Prophylaxis Regimen: Total Risk Factor Score Risk Level Prophylaxis Regimen 0-1 Low Early ambulation 2 Moderate Order ONE of the following: *Sequential Compression Device (SCD) *Heparin 5000 units SQ BID 3-4 Higher Order ONE of the following medications: *Heparin 5000 units SQ TID *Enoxaparin/Lovenox 40 mg SQ daily (WT < 150 kg, CrCl > 30 mL/min) *Enoxaparin/Lovenox 30 mg SQ daily (WT < 150 kg, CrCl > 10-29 mL/min) *Enoxaparin/Lovenox 30 mg SQ BID (WT < 150 kg, CrCl > 30 mL/min) AND/OR *Sequential Compression Device (SCD) 5 or more Highest Order ONE of the following medications: *Heparin 5000 units SQ TID (Preferred with Epidurals) *Enoxaparin/Lovenox 40 mg SQ daily (WT < 150 kg, CrCl > 30 mL/min) *Enoxaparin/Lovenox 30 mg SQ daily (WT < 150 kg, CrCl > 10-29 mL/min) *Enoxaparin/Lovenox 30 mg SQ BID (WT < 150 kg, CrCl > 30 mL/min) AND *Sequential Compression Device (SCD) Assessment and Plan - Assessment (1) SIRS (systemic inflammatory response syndrome) Code(s): R65.10 - Systemic inflammatory response syndrome (SIRS) of non- infectious origin without acute organ dysfunction Status: Acute (2) Cellulitis Code(s): L03.90 - Cellulitis, unspecified Status: Acute (3) DM (diabetes mellitus) Code(s): E11.9 - Type 2 diabetes mellitus without complications Status: Acute - Plan A/P: 1. SIRS: Temp 102, WBC 11.6, Source-Right gluteal cellulitis, follow up cultures, continue IV Abx, repeat labs in am. 2. Right Gluteal Cellulitis: s/p spontaneous drainage, check Wound/Blood Cultures, IVF, Vanc/Zosyn 3. DM: Sliding scale w/ Accu-Cheks, hold Metformin for now 4. DVT Prophylaxis: SCD/Teds 5. Social work for d/c planning as needed 6. Case discussed w/ ER physician at length, labs/records/imaging reviewed by me.
[2018-07-12] MEDS: Sod Chloride 0.9% Inj 1,000 ML IV.CONT SCH ×3 (04:12→21:53)
[2018-07-12] MEDS: Piperacil/Tazo 4.5 GM Premix 4.5 GM/100 ML BAG IV.SIG SCH ×4 (04:12→21:53)
[2018-07-12] MEDS: Senna/Docusate Sodium 8.6/50 MG Tablet PO SCH ×2 (09:39→20:49)
[2018-07-12] MEDS: Gabapentin 300 MG Capsule PO SCH (09:39)
[2018-07-12] MEDS: Acetaminophen 325 MG Tablet PO PRN ×2 (09:40→13:30)
[2018-07-12] MEDS: Insulin NovoLOG Aspart Correctional Sugar Inj SQ SCH ×4 (09:42→20:49)
[2018-07-12 13:36] LABS: Baso % (Auto) 0.4 % (0.0-2.0); Eos # (Auto) 0.1 th/mm3 (0.0-0.4); Eos % (Auto) 0.9 % (0.0-4.0); Hematocrit 33.6 % (35.0-46.0); Hemoglobin 11.1 gm/dL (11.6-15.3); Lymph # (Auto) 1.7 th/mm3 (1.0-4.8); Lymph % (Auto) 15.1 % (9.0-44.0); Mean Corpuscular HGB Conc 32.9 % (32.0-36.0); Mean Corpuscular Hemoglobin 28.4 pg (27.0-34.0); Mean Corpuscular Volume 86.2 fL (80.0-100.0); Mean Platelet Volume 8.9 fL (7.0-11.0); Mono # (Auto) 0.8 th/mm3 (0.0-0.9); Mono % (Auto) 7.3 % (0.0-8.0); Neut # (Auto) 8.4 th/mm3 (1.8-7.7); Neut % (Auto) 76.3 % (16.0-70.0); Platelet Count 246 th/mm3 (150-450); Red Cell Distribution Width 14.1 % (11.6-17.2)
[2018-07-12] MEDS: Vancomycin Inj 1,000 MG in Sodium Chlor 0.9% Inj 250 ML IV.SIG SCH (15:32)
--- NOTE | 2018-07-12 16:33 | P.PN ---
Subjective Interval history: Patient is seen lying in bed. She tells me that the pain in her buttocks is greatly improved since she started the IV antibiotic. Denies any fever or chills. No nausea vomiting no chest pain or shortness of breath. She is having some pain still that she reports as "aching" through her buttocks and upper back. Physical Exam Vital signs: Vital Signs 07/11/18 18:41 07/11/18 18:47 07/11/18 23:00 Temperature 99.0 F 100.3 F H Pulse Rate 94 H 83 82 Respiratory Rate 18 18 18 Blood Pressure 127/87 170/69 H 140/74 Pulse Oximetry 96 100 100 07/11/18 23:11 07/12/18 00:52 07/12/18 06:27 Temperature 100.6 F H Pulse Rate 88 82 Respiratory Rate 17 Blood Pressure 144/72 H 120/61 Pulse Oximetry 97 100 100 07/12/18 06:30 07/12/18 08:00 Temperature 99.4 F Pulse Rate Respiratory Rate Blood Pressure Pulse Oximetry 99 Intake & Output 07/11/18 07/12/18 07/12/18 18:59 06:59 18:59 Intake Total 1550 / 1550 1200 / 1200 Balance 1550 / 1550 1200 / 1200 Weight 122.924 kg Intake: IV 1550 / 1550 1200 / 1200 NS Inj 1,000 ML @ 100 mls/hr IV 1000 / 1000 .CONT .Q10H [facility] Rx#:[id number] Zosyn 3.375 GM Premix 50 ML @ 50 / 50 100 mls/hr IV.SIG ONCE ONE Rx#: [id number] Zosyn 4.5 GM Premix 4.5 gm In 200 / 200 100 ml @ 200 mls/hr IV.SIG Q6H [facility] Rx#:[id number] NS Inj 1,000 ML @ Wide Open IV. 1000 / 1000 SIG BOLUS ONE Rx#:[id number] Vancomycin Inj 1,000 MG In NS 500 / 500 Inj 250 ML @ 250 mls/hr IV.SIG ONCE ONE Rx#:[id number] Narrative: GENERAL: Well-nourished, well-developed adult female in no obvious distress. SKIN: Warm and dry. Right gluteal redness/induration w/ excoriation, sanguinous drainage. HEAD: Atraumatic. Normocephalic. CARDIOVASCULAR: Regular rate and rhythm. RESPIRATORY: No accessory muscle use. Clear to auscultation. Breath sounds equal bilaterally. GASTROINTESTINAL: Abdomen soft, non-tender, non-distended. Positive bowel sounds. MUSCULOSKELETAL: Extremities without clubbing, cyanosis, or edema. No obvious deformities. NEUROLOGICAL: Awake and alert. No obvious cranial nerve deficits. Motor grossly within normal limits. Normal speech. PSYCHIATRIC: Appropriate mood and affect; insight and judgment good. Results - Labs CBC & Chem 7: 07/12/18 12:45 07/11/18 21:44 Laboratory Results - last 24 hr 07/11/18 07/11/18 07/11/18 21:44 21:44 21:44 WBC 11.6 H RBC 4.22 Hgb 11.9 Hct 36.2 MCV 85.8 MCH 28.2 MCHC 32.9 RDW 14.1 Plt Count 238 MPV 9.0 Neut % (Auto) 75.0 H Lymph % (Auto) 15.9 [place] % (Auto) 7.9 Eos % (Auto) 0.7 Baso % (Auto) 0.5 Neut # (Auto) 8.7 H Lymph # (Auto) 1.8 [place] # (Auto) 0.9 Eos # (Auto) 0.1 Baso # (Auto) 0.1 WBC Differential . Differential Comment Auto diff final Sodium 139 Potassium 3.6 Chloride 105 Carbon Dioxide 25.3 Anion Gap 9 BUN 15 Creatinine 0.74 Estimated GFR 83 L POC Glucose Random Glucose 176 H Lactic Acid 1.4 Calcium 9.2 Total Bilirubin 0.3 AST 8 L ALT 15 Alkaline Phosphatase 90 Total Protein 7.8 Albumin 3.4 07/12/18 07/12/18 07/12/18 09:42 12:45 13:03 WBC 11.0 RBC 3.90 L Hgb 11.1 L Hct 33.6 L MCV 86.2 MCH 28.4 MCHC 32.9 RDW 14.1 Plt Count 246 MPV 8.9 Neut % (Auto) 76.3 H Lymph % (Auto) 15.1 [place] % (Auto) 7.3 Eos % (Auto) 0.9 Baso % (Auto) 0.4 Neut # (Auto) 8.4 H Lymph # (Auto) 1.7 [place] # (Auto) 0.8 Eos # (Auto) 0.1 Baso # (Auto) 0.0 WBC Differential . Differential Comment Auto diff final Sodium Potassium Chloride Carbon Dioxide Anion Gap BUN Creatinine Estimated GFR POC Glucose 133 H 177 H Random Glucose Lactic Acid Calcium Total Bilirubin AST ALT Alkaline Phosphatase Total Protein Albumin Microbiology 07/11/18 21:44 Blood - Peripheral Aerobic Blood Culture - Preliminary No growth in 1 day 07/11/18 21:44 Blood - Peripheral Anaerobic Blood Culture - Preliminary No growth in 1 day 07/11/18 21:30 Blood - Peripheral Aerobic Blood Culture - Preliminary No growth in 1 day 07/11/18 21:30 Blood - Peripheral Anaerobic Blood Culture - Preliminary No growth in 1 day 07/11/18 23:56 Abscess - Buttock Gram Stain - Final - Imaging Impressions Abdomen/Pelvis CT 07/12/18 00:00 CONCLUSION: Induration within the posterior medial right gluteal subcutaneous fat consistent with inflammatory change. An abscess is not seen. Assessment and Plan - Assessment (1) SIRS (systemic inflammatory response syndrome) Code(s): R65.10 - Systemic inflammatory response syndrome (SIRS) of non- infectious origin without acute organ dysfunction Status: Acute (2) Cellulitis Code(s): L03.90 - Cellulitis, unspecified Status: Acute (3) DM (diabetes mellitus) Code(s): E11.9 - Type 2 diabetes mellitus without complications Status: Acute - Plan Patient is a 48-year-old female with a past medical history of diabetes, COPD, gout and IBS who presented to the ER with a complaint of right gluteal pain and swelling for 4 days. A/P: 1. SIRS: Temp 102, WBC 11.6, Source-Right gluteal cellulitis, follow up cultures, continue IV Abx, repeat labs in am. 2. Right Gluteal Cellulitis: s/p spontaneous drainage, check Wound/Blood Cultures, IVF, Vanc/Zosyn 3. DM: Sliding scale w/ Accu-Cheks, hold Metformin for now 4. DVT Prophylaxis: SCD/Teds 5. Social work for d/c planning as needed
[2018-07-13] MEDS ORDERED: Pharmacy Ordered Lab Info OTHER ONE (02:45)
[2018-07-13] MEDS: Vancomycin Inj 1,000 MG in Sodium Chlor 0.9% Inj 250 ML IV.SIG SCH (03:29)
[2018-07-13] MEDS ORDERED: HYDROmorphone PF Inj 2 MG/ML Vial IV.PUSH ONE (04:14)
[2018-07-13] MEDS: Piperacil/Tazo 4.5 GM Premix 4.5 GM/100 ML BAG IV.SIG SCH ×4 (04:39→21:13)
[2018-07-13 07:27] LABS: Baso % (Auto) 0.5 % (0.0-2.0); Eos # (Auto) 0.1 th/mm3 (0.0-0.4); Eos % (Auto) 1.7 % (0.0-4.0); Hemoglobin 10.3 gm/dL (11.6-15.3); Lymph # (Auto) 1.8 th/mm3 (1.0-4.8); Lymph % (Auto) 19.9 % (9.0-44.0); Mean Corpuscular HGB Conc 33.3 % (32.0-36.0); Mean Corpuscular Hemoglobin 28.4 pg (27.0-34.0); Mean Corpuscular Volume 85.4 fL (80.0-100.0); Mean Platelet Volume 8.9 fL (7.0-11.0); Mono # (Auto) 0.7 th/mm3 (0.0-0.9); Mono % (Auto) 7.5 % (0.0-8.0); Neut # (Auto) 6.2 th/mm3 (1.8-7.7); Neut % (Auto) 70.4 % (16.0-70.0); Platelet Count 230 th/mm3 (150-450); Red Blood Count 3.63 mil/mm3 (4.00-5.30); White Blood Count 8.8 th/mm3 (4.0-11.0)
[2018-07-13 08:01] LABS: Albumin 2.9 g/dL (3.4-5.0); Anion Gap 9 meq/L (5-15); Aspartate Aminotransferase 9 U/L (15-37); Blood Urea Nitrogen 7 mg/dL (7-18); Calcium 8.7 mg/dL (8.5-10.1); Carbon Dioxide 26.1 meq/L (21.0-32.0); Chloride 106 meq/L (98-107); Glomerular Filtration Rate Greater Than 89 mL/min (>89); Glucose,Random 117 mg/dL (74-106); Potassium 3.8 meq/L (3.5-5.1); Sodium 141 meq/L (136-145)
[2018-07-13 08:02] LABS: Alanine Aminotransferase 14 U/L (10-53)
[2018-07-13 08:05] LABS: Alkaline Phosphatase 76 U/L (45-117); Total Protein 6.9 g/dL (6.4-8.2)
[2018-07-13] MEDS: Senna/Docusate Sodium 8.6/50 MG Tablet PO SCH ×2 (08:52→20:33)
[2018-07-13] MEDS: Gabapentin 300 MG Capsule PO SCH (08:52)
[2018-07-13] MEDS: Acetaminophen 325 MG Tablet PO PRN (08:52)
[2018-07-13] MEDS: Insulin NovoLOG Aspart Correctional Sugar Inj SQ SCH ×4 (10:34→20:40)
[2018-07-13] MEDS: Vancomycin Inj 1,500 MG in Sodium Chlor 0.9% Inj 500 ML IV.SIG SCH (14:44)
[2018-07-13] MEDS ORDERED: Naloxone Inj 0.4 MG/ML Vial IV.PUSH PRN (15:59)
[2018-07-13] MEDS ORDERED: Acetaminophen 325 MG Tablet PO PRN (16:00)
--- NOTE | 2018-07-13 16:15 | P.PN ---
Subjective Interval history: Patient is seen lying in bed. She tells me that she is still having some pain. Tells me that [employer] does not work for her that she needs Percocet instead. She specifically indicates pain through her left posterior thoracic area. Denies any spinal pain. Denies any pain with inhalation. No shortness of breath. No chest pain. Physical Exam Vital signs: Vital Signs 07/12/18 16:35 07/12/18 20:00 07/13/18 00:00 Temperature 99.4 F 98.8 F 98.3 F Pulse Rate 66 84 80 Respiratory Rate 16 22 22 Blood Pressure 134/77 119/60 124/60 Pulse Oximetry 98 95 95 07/13/18 03:45 07/13/18 08:00 07/13/18 12:00 Temperature 99.2 F 98.1 F 97.7 F Pulse Rate 88 61 52 L Respiratory Rate 22 18 18 Blood Pressure 130/77 95/54 L 113/62 Pulse Oximetry 95 98 96 Intake & Output 07/12/18 07/13/18 07/13/18 18:59 06:59 18:59 Intake Total 1550 / 1550 1000 / 1000 100 / 100 Balance 1550 / 1550 1000 / 1000 100 / 100 Intake: IV 1550 / 1550 1000 / 1000 100 / 100 NS Inj 1,000 ML @ 100 mls/hr IV 1000 / 1000 1000 / 1000 .CONT .Q10H [facility] Rx#:[id number] Zosyn 4.5 GM Premix 4.5 gm In 300 / 300 100 / 100 100 ml @ 200 mls/hr IV.SIG Q6H [facility] Rx#:[id number] Vancomycin Inj 1,000 MG In NS 250 / 250 Inj 250 ML @ 250 mls/hr IV.SIG Q12H [facility] Rx#:[id number] Other: # Voids 2 Narrative: GENERAL: Well-nourished, well-developed adult female in no obvious distress. SKIN: Warm and dry. Right gluteal redness/induration w/ excoriation, sanguinous drainage. HEAD: Atraumatic. Normocephalic. CARDIOVASCULAR: Regular rate and rhythm. RESPIRATORY: No accessory muscle use. Clear to auscultation. Breath sounds equal bilaterally. GASTROINTESTINAL: Abdomen soft, non-tender, non-distended. Positive bowel sounds. MUSCULOSKELETAL: Extremities without clubbing, cyanosis, or edema. No obvious deformities. NEUROLOGICAL: Awake and alert. No obvious cranial nerve deficits. Motor grossly within normal limits. Normal speech. PSYCHIATRIC: Appropriate mood and affect; insight and judgment good. Results - Labs CBC & Chem 7: 07/13/18 06:15 07/13/18 06:15 Laboratory Results - last 24 hr 07/12/18 07/12/18 07/13/18 17:23 20:47 03:15 WBC RBC Hgb Hct MCV MCH MCHC RDW Plt Count MPV Neut % (Auto) Lymph % (Auto) [place] % (Auto) Eos % (Auto) Baso % (Auto) Neut # (Auto) Lymph # (Auto) [place] # (Auto) Eos # (Auto) Baso # (Auto) WBC Differential Differential Comment Sodium Potassium Chloride Carbon Dioxide Anion Gap BUN Creatinine Estimated GFR POC Glucose 156 H 207 H Random Glucose Calcium Total Bilirubin AST ALT Alkaline Phosphatase Total Protein Albumin Vancomycin Trough 3.5 L 07/13/18 07/13/18 07/13/18 06:15 06:15 07:54 WBC 8.8 RBC 3.63 L Hgb 10.3 L Hct 31.0 L MCV 85.4 MCH 28.4 MCHC 33.3 RDW 14.0 Plt Count 230 MPV 8.9 Neut % (Auto) 70.4 H Lymph % (Auto) 19.9 [place] % (Auto) 7.5 Eos % (Auto) 1.7 Baso % (Auto) 0.5 Neut # (Auto) 6.2 Lymph # (Auto) 1.8 [place] # (Auto) 0.7 Eos # (Auto) 0.1 Baso # (Auto) 0.0 WBC Differential . Differential Comment Auto diff final Sodium 141 Potassium 3.8 Chloride 106 Carbon Dioxide 26.1 Anion Gap 9 BUN 7 Creatinine 0.58 Estimated GFR Greater than 89 POC Glucose 128 H Random Glucose 117 H Calcium 8.7 Total Bilirubin 0.4 AST 9 L ALT 14 Alkaline Phosphatase 76 Total Protein 6.9 D Albumin 2.9 L Vancomycin Trough 07/13/18 12:16 WBC RBC Hgb Hct MCV MCH MCHC RDW Plt Count MPV Neut % (Auto) Lymph % (Auto) [place] % (Auto) Eos % (Auto) Baso % (Auto) Neut # (Auto) Lymph # (Auto) [place] # (Auto) Eos # (Auto) Baso # (Auto) WBC Differential Differential Comment Sodium Potassium Chloride Carbon Dioxide Anion Gap BUN Creatinine Estimated GFR POC Glucose 128 H Random Glucose Calcium Total Bilirubin AST ALT Alkaline Phosphatase Total Protein Albumin Vancomycin Trough Microbiology 07/11/18 23:56 Abscess - Buttock Gram Stain - Final 07/11/18 23:56 Abscess - Buttock Wound Culture - Preliminary S. aureus MRSA 07/11/18 21:44 Blood - Peripheral Aerobic Blood Culture - Preliminary No growth in 2 days 07/11/18 21:44 Blood - Peripheral Anaerobic Blood Culture - Preliminary No growth in 2 days 07/11/18 21:30 Blood - Peripheral Aerobic Blood Culture - Preliminary No growth in 2 days 07/11/18 21:30 Blood - Peripheral Anaerobic Blood Culture - Preliminary No growth in 2 days Assessment and Plan - Assessment (1) SIRS (systemic inflammatory response syndrome) Code(s): R65.10 - Systemic inflammatory response syndrome (SIRS) of non- infectious origin without acute organ dysfunction Status: Acute (2) Cellulitis Code(s): L03.90 - Cellulitis, unspecified Status: Acute (3) DM (diabetes mellitus) Code(s): E11.9 - Type 2 diabetes mellitus without complications Status: Acute - Plan Patient is a 48-year-old female with a past medical history of diabetes, COPD, gout and IBS who presented to the ER with a complaint of right gluteal pain and swelling for 4 days. A/P: 1. SIRS: Temp 102, WBC 11.6, Source-Right gluteal cellulitis, follow up cultures, continue IV Abx, repeat labs in am. 2. Right Gluteal Cellulitis: s/p spontaneous drainage, check Wound/Blood Cultures, IVF, Vanc/Zosyn, blood cultures no growth, wound culture staph aureus MRSA. We will initiate isolation. 3. DM: Sliding scale w/ Accu-Cheks, hold Metformin for now 4. Back pain - US ordered to rule out additional infection. DVT Prophylaxis: SCD/Teds Social work for d/c planning as needed
[2018-07-13] MEDS: oxyCODONE/Acetaminophen 10/325 Tablet PO PRN (17:33)
--- NOTE | 2018-07-13 18:34 | US ---
EXAM DATE: 07/13/2018 6:31 PM EDT AGE/SEX: 48 years / Female INDICATIONS: Short of breath. Posterior left chest pain. CLINICAL DATA: This is the patient's initial encounter. Patient reports that signs and symptoms have been present for 3 days and indicates a pain score of 4/10. MEDICAL/SURGICAL HISTORY: Chronic obstructive pulmonary disease. Diabetes. Myocardial infarct ion. IBS. Skin cancer. . Gastric banding. COMPARISON: [facility] [place], CT ABDOMEN & PELVIS W CONTRAST, 07/12/2018. . MEASUREMENTS: Skin To Parietal Pleura:__n/a cm Skin To Max Safe Depth:__n/a cm Estimated Fluid Volume:__n/a cc Fluid Composition:__inadequate fluid FINDINGS: None. CONCLUSION: 1. No left pleural effusion. Electronically signed by: Hossein Burns MD 07/13/2018 6:33 PM EDT
[2018-07-13] MEDS: Sod Chloride 0.9% Inj 1,000 ML IV.CONT SCH (19:18)
[2018-07-13] MEDS: Temazepam 15 MG Capsule PO PRN (23:23)
[2018-07-14] MEDS: Vancomycin Inj 1,500 MG in Sodium Chlor 0.9% Inj 500 ML IV.SIG SCH ×2 (01:07→14:02)
[2018-07-14] MEDS: Piperacil/Tazo 4.5 GM Premix 4.5 GM/100 ML BAG IV.SIG SCH ×4 (03:11→21:10)
[2018-07-14] MEDS: Sod Chloride 0.9% Inj 1,000 ML IV.CONT SCH ×2 (03:48→15:04)
[2018-07-14] MEDS: Acetaminophen 325 MG Tablet PO PRN (08:28)
[2018-07-14] MEDS: Senna/Docusate Sodium 8.6/50 MG Tablet PO SCH ×2 (08:28→21:10)
[2018-07-14] MEDS: Gabapentin 300 MG Capsule PO SCH (08:28)
[2018-07-14] MEDS: Insulin NovoLOG Aspart Correctional Sugar Inj SQ SCH ×4 (08:29→21:10)
[2018-07-14] MEDS: Pantoprazole Sodium 20 MG DR Tablet PO SCH (13:06)
--- NOTE | 2018-07-14 15:00 | P.PN ---
Subjective Interval history: Patient is seen sitting up in bed. Tells me that she is feeling quite a bit better. Her back is no longer hurting her and the radiating pain from her buttocks seems to be reduced. She denies fevers or chills. No nausea vomiting or diarrhea. Tolerating meals. Physical Exam Vital signs: Vital Signs 07/13/18 16:00 07/13/18 19:20 07/13/18 20:00 Temperature 98.0 F 98.0 F Pulse Rate 57 L 58 L Respiratory Rate 18 Blood Pressure 105/58 L 101/47 L Pulse Oximetry 96 97 07/14/18 00:00 07/14/18 04:00 07/14/18 12:00 Temperature 97.9 F 98.0 F 98.4 F Pulse Rate 53 L 77 52 L Respiratory Rate 18 Blood Pressure 99/58 L 113/57 L 127/57 L Pulse Oximetry 96 98 99 Intake & Output 07/13/18 07/14/18 07/14/18 18:59 06:59 18:59 Intake Total 200 / 200 2565 / 2565 100 / 100 Balance 200 / 200 2565 / 2565 100 / 100 Intake: IV 200 / 200 2565 / 2565 100 / 100 NS Inj 1,000 ML @ 100 mls/hr IV 1000 / 1000 .CONT .Q10H [facility] Rx#:[id number] Zosyn 4.5 GM Premix 4.5 gm In 200 / 200 300 / 300 100 / 100 100 ml @ 200 mls/hr IV.SIG Q6H [facility] Rx#:[id number] Vancomycin Inj 1,500 MG In NS 1265 / 1265 Inj 500 ML @ 250 mls/hr IV.SIG Q12H [facility] Rx#:[id number] Other: # Voids 5 Date of Last Bowel Movement 07/13/18 Narrative: GENERAL: Well-nourished, well-developed adult female in no obvious distress. SKIN: Warm and dry. Right gluteal redness/induration w/ excoriation, sanguinous drainage. HEAD: Atraumatic. Normocephalic. CARDIOVASCULAR: Regular rate and rhythm. RESPIRATORY: No accessory muscle use. Clear to auscultation. Breath sounds equal bilaterally. GASTROINTESTINAL: Abdomen soft, non-tender, non-distended. Positive bowel sounds. MUSCULOSKELETAL: Extremities without clubbing, cyanosis, or edema. No obvious deformities. NEUROLOGICAL: Awake and alert. No obvious cranial nerve deficits. Motor grossly within normal limits. Normal speech. PSYCHIATRIC: Appropriate mood and affect; insight and judgment good. Results - Labs CBC & Chem 7: 07/13/18 06:15 07/13/18 06:15 Laboratory Results - last 24 hr 07/13/18 07/13/18 07/14/18 17:30 20:35 08:25 POC Glucose 128 H 211 H 126 H 07/14/18 11:54 POC Glucose 169 H Microbiology 07/11/18 21:44 Blood - Peripheral Aerobic Blood Culture - Preliminary No growth in 3 days 07/11/18 21:44 Blood - Peripheral Anaerobic Blood Culture - Preliminary No growth in 3 days 07/11/18 21:30 Blood - Peripheral Aerobic Blood Culture - Preliminary No growth in 3 days 07/11/18 21:30 Blood - Peripheral Anaerobic Blood Culture - Preliminary No growth in 3 days 07/11/18 23:56 Abscess - Buttock Gram Stain - Final 07/11/18 23:56 Abscess - Buttock Wound Culture - Final S. aureus MRSA - Imaging Impressions Chest Ultrasound 07/13/18 00:00 CONCLUSION: 1. No left pleural effusion. Assessment and Plan - Assessment (1) SIRS (systemic inflammatory response syndrome) Code(s): R65.10 - Systemic inflammatory response syndrome (SIRS) of non- infectious origin without acute organ dysfunction Status: Acute (2) Cellulitis Code(s): L03.90 - Cellulitis, unspecified Status: Acute (3) DM (diabetes mellitus) Code(s): E11.9 - Type 2 diabetes mellitus without complications Status: Acute - Plan Patient is a 48-year-old female with a past medical history of diabetes, COPD, gout and IBS who presented to the ER with a complaint of right gluteal pain and swelling for 4 days. A/P: 1. SIRS: Temp 102, WBC 11.6, Source-Right gluteal cellulitis, follow up cultures, continue IV Abx, repeat labs in am. 2. Right Gluteal Cellulitis: s/p spontaneous drainage, check Wound/Blood Cultures, IVF, Vanc/Zosyn, blood cultures no growth, wound culture staph aureus MRSA. We will initiate isolation. CT did not show abscess. 3. DM: Sliding scale w/ Accu-Cheks, hold Metformin for now 4. Back pain - US ordered to rule out additional infection. Ultrasound normal. Back pain has resolved. DVT Prophylaxis: SCD/Teds Social work for d/c planning as needed
[2018-07-14] MEDS: oxyCODONE/Acetaminophen 10/325 Tablet PO PRN (17:33)
[2018-07-14] MEDS: Temazepam 15 MG Capsule PO PRN (21:57)
[2018-07-15] MEDS ORDERED: Pharmacy Ordered Lab Info OTHER ONE (01:45)
[2018-07-15] MEDS: Vancomycin Inj 1,500 MG in Sodium Chlor 0.9% Inj 500 ML IV.SIG SCH ×2 (02:51→15:41)
[2018-07-15] MEDS: Sod Chloride 0.9% Inj 1,000 ML IV.CONT SCH ×3 (02:51→22:50)
[2018-07-15] MEDS: Piperacil/Tazo 4.5 GM Premix 4.5 GM/100 ML BAG IV.SIG SCH ×4 (05:52→22:50)
[2018-07-15 07:14] LABS: Baso % (Auto) 0.8 % (0.0-2.0); Eos # (Auto) 0.2 th/mm3 (0.0-0.4); Eos % (Auto) 3.3 % (0.0-4.0); Hematocrit 30.8 % (35.0-46.0); Hemoglobin 10.1 gm/dL (11.6-15.3); Lymph # (Auto) 1.7 th/mm3 (1.0-4.8); Lymph % (Auto) 28.3 % (9.0-44.0); Mean Corpuscular HGB Conc 32.7 % (32.0-36.0); Mean Corpuscular Hemoglobin 28.2 pg (27.0-34.0); Mean Corpuscular Volume 86.2 fL (80.0-100.0); Mean Platelet Volume 9.2 fL (7.0-11.0); Mono # (Auto) 0.4 th/mm3 (0.0-0.9); Mono % (Auto) 6.3 % (0.0-8.0); Neut # (Auto) 3.7 th/mm3 (1.8-7.7); Neut % (Auto) 61.3 % (16.0-70.0); Platelet Count 259 th/mm3 (150-450); Red Blood Count 3.58 mil/mm3 (4.00-5.30); Red Cell Distribution Width 13.9 % (11.6-17.2)
[2018-07-15 07:39] LABS: Calcium 9.1 mg/dL (8.5-10.1); Carbon Dioxide 27.2 meq/L (21.0-32.0)
[2018-07-15] MEDS: Insulin NovoLOG Aspart Correctional Sugar Inj SQ SCH ×4 (08:12→20:41)
[2018-07-15] MEDS: Gabapentin 300 MG Capsule PO SCH (08:13)
[2018-07-15] MEDS: Pantoprazole Sodium 20 MG DR Tablet PO SCH (08:13)
[2018-07-15] MEDS: Senna/Docusate Sodium 8.6/50 MG Tablet PO SCH ×2 (08:13→20:35)
--- NOTE | 2018-07-15 09:41 | P.PNIM ---
Subjective Interval history: Patient reports dull constant nonradiating substernal chest pain since around 2 AM. She denies any exacerbating or relieving factors. Ate entire breakfast. Physical Exam Vital signs: Vital Signs 07/14/18 12:00 07/14/18 16:00 07/14/18 20:00 Temperature 98.4 F 97.8 F 97.5 F L Pulse Rate 52 L 52 L 53 L Respiratory Rate 18 18 21 Blood Pressure 127/57 L 88/50 L 106/52 L Pulse Oximetry 99 97 97 07/15/18 00:29 07/15/18 04:48 Temperature 97.6 F 97.7 F Pulse Rate 49 L 47 L Respiratory Rate 18 Blood Pressure 104/54 L 113/63 Pulse Oximetry 97 96 Intake & Output 07/14/18 07/15/18 07/15/18 18:59 06:59 18:59 Intake Total 475 / 475 2810 / 2810 Balance 475 / 475 2810 / 2810 Weight 120 kg Intake: IV 100 / 100 2230 / 2230 NS Inj 1,000 ML @ 100 mls/hr IV 1000 / 1000 .CONT .Q10H [facility] Rx#:[id number] Zosyn 4.5 GM Premix 4.5 gm In 100 / 100 200 / 200 100 ml @ 200 mls/hr IV.SIG Q6H [facility] Rx#:[id number] Vancomycin Inj 1,500 MG In NS 1030 / 1030 Inj 500 ML @ 250 mls/hr IV.SIG Q12H [facility] Rx#:[id number] Oral 375 / 375 580 / 580 Other: # Voids 1 3 Date of Last Bowel Movement 07/13/18 Narrative: GENERAL: Well-nourished, well-developed adult female in no obvious distress. Alert and oriented 3. SKIN: Warm and dry. Right gluteal redness/induration w/ excoriation, sanguinous drainage. HEAD: Atraumatic. Normocephalic. CARDIOVASCULAR: Regular rate and rhythm. No chest wall tenderness. RESPIRATORY: No accessory muscle use. Clear to auscultation. Breath sounds equal bilaterally. GASTROINTESTINAL: Abdomen soft, non-tender, non-distended. Positive bowel sounds. MUSCULOSKELETAL: Extremities without clubbing, cyanosis, or edema. No obvious deformities. NEUROLOGICAL: Awake and alert. No obvious cranial nerve deficits. Motor grossly within normal limits. Normal speech. PSYCHIATRIC: Appropriate mood and affect; insight and judgment good. Results - Labs CBC & Chem 7: 07/15/18 06:37 07/15/18 06:37 Laboratory Results - last 24 hr 07/14/18 07/14/18 07/14/18 11:54 16:51 21:09 WBC RBC Hgb Hct MCV MCH MCHC RDW Plt Count MPV Neut % (Auto) Lymph % (Auto) [place] % (Auto) Eos % (Auto) Baso % (Auto) Neut # (Auto) Lymph # (Auto) [place] # (Auto) Eos # (Auto) Baso # (Auto) WBC Differential Differential Comment Sodium Potassium Chloride Carbon Dioxide Anion Gap BUN Creatinine Estimated GFR POC Glucose 169 H 156 H 177 H Random Glucose Calcium Vancomycin Trough 07/15/18 07/15/18 07/15/18 02:00 06:37 06:37 WBC 6.0 RBC 3.58 L Hgb 10.1 L Hct 30.8 L MCV 86.2 MCH 28.2 MCHC 32.7 RDW 13.9 Plt Count 259 MPV 9.2 Neut % (Auto) 61.3 Lymph % (Auto) 28.3 [place] % (Auto) 6.3 Eos % (Auto) 3.3 Baso % (Auto) 0.8 Neut # (Auto) 3.7 Lymph # (Auto) 1.7 [place] # (Auto) 0.4 Eos # (Auto) 0.2 Baso # (Auto) 0.0 WBC Differential . Differential Comment Auto diff final Sodium 141 Potassium 4.0 Chloride 104 Carbon Dioxide 27.2 Anion Gap 10 BUN 14 Creatinine 0.70 Estimated GFR 89 POC Glucose Random Glucose 141 H Calcium 9.1 Vancomycin Trough 9.9 07/15/18 08:09 WBC RBC Hgb Hct MCV MCH MCHC RDW Plt Count MPV Neut % (Auto) Lymph % (Auto) [place] % (Auto) Eos % (Auto) Baso % (Auto) Neut # (Auto) Lymph # (Auto) [place] # (Auto) Eos # (Auto) Baso # (Auto) WBC Differential Differential Comment Sodium Potassium Chloride Carbon Dioxide Anion Gap BUN Creatinine Estimated GFR POC Glucose 140 H Random Glucose Calcium Vancomycin Trough Microbiology 07/11/18 21:44 Blood - Peripheral Aerobic Blood Culture - Preliminary No growth in 3 days 07/11/18 21:44 Blood - Peripheral Anaerobic Blood Culture - Preliminary No growth in 3 days 07/11/18 21:30 Blood - Peripheral Aerobic Blood Culture - Preliminary No growth in 3 days 07/11/18 21:30 Blood - Peripheral Anaerobic Blood Culture - Preliminary No growth in 3 days 07/11/18 23:56 Abscess - Buttock Gram Stain - Final 07/11/18 23:56 Abscess - Buttock Wound Culture - Final S. aureus MRSA Assessment and Plan - Assessment (1) SIRS (systemic inflammatory response syndrome) Code(s): R65.10 - Systemic inflammatory response syndrome (SIRS) of non- infectious origin without acute organ dysfunction Status: Acute (2) Cellulitis Code(s): L03.90 - Cellulitis, unspecified Status: Acute (3) DM (diabetes mellitus) Code(s): E11.9 - Type 2 diabetes mellitus without complications Status: Acute - Plan //Suspected sepsis: Temp 102, WBC 11.6, Source-Right gluteal cellulitis, follow up cultures, continue IV Abx, repeat labs in am. = 07/15. Improving. Continue IV vancomycin. Can start on doxycycline at discharge. // Right Gluteal Cellulitis: s/p spontaneous drainage, check Wound/Blood Cultures, IVF, Vanc/Zosyn, blood cultures no growth, wound culture staph aureus MRSA. We will initiate isolation. CT did not show abscess. = Sensitive to tetracyclines. ///Chest pain beginning overnight around 2 AM on 07/15. = Patient allergic to aspirin. Trend EKGs and troponins. //DM: Sliding scale w/ Accu-Cheks, hold Metformin for now //Back pain - US ordered to rule out additional infection. Ultrasound normal. Back pain has resolved.
[2018-07-15] MEDS: Temazepam 15 MG Capsule PO PRN (22:51)
[2018-07-16] MEDS: Vancomycin Inj 1,500 MG in Sodium Chlor 0.9% Inj 500 ML IV.SIG SCH (02:39)
[2018-07-16] MEDS: Sod Chloride 0.9% Inj 1,000 ML IV.CONT SCH ×2 (05:35→21:50)
[2018-07-16] MEDS: Piperacil/Tazo 4.5 GM Premix 4.5 GM/100 ML BAG IV.SIG SCH (05:35)
[2018-07-16] MEDS: Insulin NovoLOG Aspart Correctional Sugar Inj SQ SCH ×4 (08:57→21:49)
[2018-07-16] MEDS: oxyCODONE/Acetaminophen 10/325 Tablet PO PRN ×2 (08:59→16:25)
[2018-07-16] MEDS: Senna/Docusate Sodium 8.6/50 MG Tablet PO SCH ×2 (08:59→21:44)
[2018-07-16] MEDS: Pantoprazole Sodium 20 MG DR Tablet PO SCH (08:59)
[2018-07-16] MEDS: Gabapentin 300 MG Capsule PO SCH (08:59)
--- NOTE | 2018-07-16 09:50 | P.PNIM ---
Subjective Interval history: She reports that dull chest pain continues intermittent. Physical Exam Vital signs: Vital Signs 07/15/18 12:00 07/15/18 16:00 07/15/18 20:00 Temperature 98.0 F 97.9 F 98.1 F Pulse Rate 46 L 50 L 54 L Respiratory Rate 16 17 17 Blood Pressure 127/58 L 114/74 100/55 L Pulse Oximetry 96 99 96 07/16/18 00:00 07/16/18 08:00 Temperature 97.5 F L 97.5 F L Pulse Rate 51 L 51 L Respiratory Rate 17 20 Blood Pressure 120/56 L 134/65 Pulse Oximetry 97 97 Intake & Output 07/15/18 07/16/18 07/16/18 18:59 06:59 18:59 Intake Total 1200 / 1200 2055 / 2055 515 / 515 Balance 1200 / 1200 2055 / 2055 515 / 515 Intake: IV 1200 / 1200 1815 / 1815 515 / 515 NS Inj 1,000 ML @ 100 mls/hr IV 1000 / 1000 1000 / 1000 .CONT .Q10H ZHANNA Rx#:[id number] Zosyn 4.5 GM Premix 4.5 gm In 200 / 200 300 / 300 100 ml @ 200 mls/hr IV.SIG Q6H ZHANNA Rx#:[id number] Vancomycin Inj 1,500 MG In NS 515 / 515 515 / 515 Inj 500 ML @ 250 mls/hr IV.SIG Q12H ZHANNA Rx#:[id number] Oral 240 / 240 Other: # Voids 2 Narrative: GENERAL: Well-nourished, well-developed adult female in no obvious distress. Alert and oriented 3. No changes on exam. SKIN: Warm and dry. Right gluteal redness/induration w/ excoriation, sanguinous drainage. HEAD: Atraumatic. Normocephalic. CARDIOVASCULAR: Regular rate and rhythm. No chest wall tenderness. RESPIRATORY: No accessory muscle use. Clear to auscultation. Breath sounds equal bilaterally. GASTROINTESTINAL: Abdomen soft, non-tender, non-distended. Positive bowel sounds. MUSCULOSKELETAL: Extremities without clubbing, cyanosis, or edema. No obvious deformities. NEUROLOGICAL: Awake and alert. No obvious cranial nerve deficits. Motor grossly within normal limits. Normal speech. PSYCHIATRIC: Appropriate mood and affect; insight and judgment good. Results - Labs CBC & Chem 7: 07/15/18 06:37 07/15/18 06:37 Laboratory Results - last 24 hr 07/15/18 07/15/18 07/15/18 11:31 12:10 12:10 POC Glucose 169 H Troponin I Less than 0.02 L Beta HCG, Qual 1.4 07/15/18 07/15/18 07/15/18 16:28 18:34 20:10 POC Glucose 189 H Troponin I Less than 0.02 L Less than 0.02 L Beta HCG, Qual 07/15/18 07/16/18 20:40 08:56 POC Glucose 184 H 122 H Troponin I Beta HCG, Qual Microbiology 07/11/18 21:44 Blood - Peripheral Aerobic Blood Culture - Preliminary No growth in 4 days 07/11/18 21:44 Blood - Peripheral Anaerobic Blood Culture - Preliminary No growth in 4 days 07/11/18 21:30 Blood - Peripheral Aerobic Blood Culture - Preliminary No growth in 4 days 07/11/18 21:30 Blood - Peripheral Anaerobic Blood Culture - Preliminary No growth in 4 days Assessment and Plan - Assessment (1) SIRS (systemic inflammatory response syndrome) Code(s): R65.10 - Systemic inflammatory response syndrome (SIRS) of non- infectious origin without acute organ dysfunction Status: Acute (2) Cellulitis Code(s): L03.90 - Cellulitis, unspecified Status: Acute (3) DM (diabetes mellitus) Code(s): E11.9 - Type 2 diabetes mellitus without complications Status: Acute - Plan //Suspected sepsis: Temp 102, WBC 11.6, Source-Right gluteal cellulitis, follow up cultures, continue IV Abx, repeat labs in am. = 07/15. Improving. Continue IV vancomycin. Can start on doxycycline at discharge. = 07/16. Switch to doxycycline. // Right Gluteal Cellulitis: s/p spontaneous drainage, check Wound/Blood Cultures, IVF, Vanc/Zosyn, blood cultures no growth, wound culture staph aureus MRSA. We will initiate isolation. CT did not show abscess. = Sensitive to tetracyclines. = 07/16. Start on Doxy. ///Chest pain beginning overnight around 2 AM on 07/15. = Patient allergic to aspirin. Trend EKGs and troponins. = EKG was some baseline ST changes. Troponins negative. Patient unlikely to achieve 5 mets. Lexiscan. //DM: Sliding scale w/ Accu-Cheks, hold Metformin for now //Back pain - US ordered to rule out additional infection. Ultrasound normal. Back pain has resolved. Discharge Planning: Pending Lexiscan.
[2018-07-16] MEDS ORDERED: Regadenoson Inj 0.4 MG/5 ML Syringe IV.PUSH ONE (10:55)
[2018-07-16] MEDS: Doxycycline Inj 200 MG in Sodium Chlor 0.9% Inj 250 ML IV.SIG SCH ×2 (12:30→21:44)
--- NOTE | 2018-07-16 16:24 | ECG ---
Date Performed: 07/15/2018 Time Performed: 09:30:07 PTAGE: 48 years EKG: SINUS BRADYCARDIA WITH SINUS ARRHYTHMIA Compared to previous tracing, sinus rate is slower BORDERLINE ECG PREVIOUS TRACING : 09/22/2014 22.56 DOCTOR: Damián Nash Interpretating Date/Time 07/16/2018 16:23:20
[2018-07-16] MEDS: Temazepam 15 MG Capsule PO PRN (21:49)
[2018-07-17] MEDS: Sod Chloride 0.9% Inj 1,000 ML IV.CONT SCH ×2 (03:18→13:02)
[2018-07-17] MEDS: Gabapentin 300 MG Capsule PO SCH (08:49)
[2018-07-17] MEDS: Pantoprazole Sodium 20 MG DR Tablet PO SCH (08:50)
[2018-07-17] MEDS: Senna/Docusate Sodium 8.6/50 MG Tablet PO SCH ×2 (08:50→21:24)
[2018-07-17] MEDS: Insulin NovoLOG Aspart Correctional Sugar Inj SQ SCH ×4 (08:51→21:27)
[2018-07-17] MEDS: oxyCODONE/Acetaminophen 10/325 Tablet PO PRN ×3 (08:55→21:23)
--- NOTE | 2018-07-17 09:27 | P.PNIM ---
Subjective Interval history: Patient says she is feeling all right. Some mild chest pain overnight which has resolved. Physical Exam Vital signs: Vital Signs 07/16/18 12:00 07/16/18 16:00 07/16/18 20:00 Temperature 98.2 F 97.7 F 98.5 F Pulse Rate 55 L 52 L 83 Respiratory Rate 20 18 19 Blood Pressure 133/69 136/72 137/63 Pulse Oximetry 99 98 98 07/17/18 00:00 07/17/18 08:00 Temperature 98.2 F 97.8 F Pulse Rate 55 L 49 L Respiratory Rate 20 16 Blood Pressure 155/72 H 148/90 H Pulse Oximetry 96 94 L Intake & Output 07/16/18 07/17/18 07/17/18 18:59 06:59 18:59 Intake Total 1485 / 1485 2150 / 2150 Balance 1485 / 1485 2150 / 2150 Weight 120 kg Intake: IV 765 / 765 1250 / 1250 NS Inj 1,000 ML @ 100 mls/hr IV 1000 / 1000 .CONT .Q10H ZHANNA Rx#:[id number] Doxy 100 Inj 200 MG In NS Inj 250 / 250 250 / 250 250 ML @ 125 mls/hr IV.SIG Q12HR ZHANNA Rx#:[id number] Vancomycin Inj 1,500 MG In NS 515 / 515 Inj 500 ML @ 250 mls/hr IV.SIG Q12H ZHANNA Rx#:[id number] Oral 720 / 720 900 / 900 Other: # Voids 840 3 Date of Last Bowel Movement 07/15/18 # Bowel Movements 1 Narrative: GENERAL: Well-nourished, well-developed adult female in no obvious distress. Alert and oriented 3. SKIN: Warm and dry. Right gluteal redness/induration w/ excoriation. improving. HEAD: Atraumatic. Normocephalic. CARDIOVASCULAR: Regular rate and rhythm. No chest wall tenderness. RESPIRATORY: No accessory muscle use. Clear to auscultation. Breath sounds equal bilaterally. GASTROINTESTINAL: Abdomen soft, non-tender, non-distended. Positive bowel sounds. MUSCULOSKELETAL: Extremities without clubbing, cyanosis, or edema. No obvious deformities. NEUROLOGICAL: Awake and alert. No obvious cranial nerve deficits. Motor grossly within normal limits. Normal speech. PSYCHIATRIC: Appropriate mood and affect; insight and judgment good. Results - Labs CBC & Chem 7: 08/20/18 06:37 07/15/18 06:37 Laboratory Results - last 24 hr 07/16/18 07/16/18 07/17/18 17:06 21:47 07:47 POC Glucose 146 H 173 H 113 H Microbiology 07/11/18 21:44 Blood - Peripheral Aerobic Blood Culture - Final No growth in 5 days 07/11/18 21:44 Blood - Peripheral Anaerobic Blood Culture - Final No growth in 5 days 07/11/18 21:30 Blood - Peripheral Aerobic Blood Culture - Final No growth in 5 days 07/11/18 21:30 Blood - Peripheral Anaerobic Blood Culture - Final No growth in 5 days Assessment and Plan - Assessment (1) SIRS (systemic inflammatory response syndrome) Code(s): R65.10 - Systemic inflammatory response syndrome (SIRS) of non- infectious origin without acute organ dysfunction Status: Acute (2) Cellulitis Code(s): L03.90 - Cellulitis, unspecified Status: Acute (3) DM (diabetes mellitus) Code(s): E11.9 - Type 2 diabetes mellitus without complications Status: Acute - Plan //Suspected sepsis: Temp 102, WBC 11.6, Source-Right gluteal cellulitis, follow up cultures, continue IV Abx, repeat labs in am. = 07/15. Improving. Continue IV vancomycin. Can start on doxycycline at discharge. = 07/16. Switch to doxycycline. = 07/17. Continue doxycycline to complete treatment course. Patient advised to follow-up with primary care for continued monitoring. // Right Gluteal Cellulitis: s/p spontaneous drainage, check Wound/Blood Cultures, IVF, Vanc/Zosyn, blood cultures no growth, wound culture staph aureus MRSA. We will initiate isolation. CT did not show abscess. = Sensitive to tetracyclines. = 07/16. Start on Doxy. ///Chest pain beginning overnight around 2 AM on 07/15. = Patient allergic to aspirin. Trend EKGs and troponins. = EKG was some baseline ST changes. Troponins negative. Patient unlikely to achieve 5 mets. Lexiscan. = Pending Lexiscan results. //DM: Sliding scale w/ Accu-Cheks, hold Metformin for now //Back pain - US ordered to rule out additional infection. Ultrasound normal. Back pain has resolved. Discharge Planning: Pending Lexiscan. Doxycycline to complete treatment course.
[2018-07-17 09:46] LABS: Glomerular Filtration Rate Greater Than 89 mL/min (>89)
--- NOTE | 2018-07-17 11:26 | NM ---
EXAM DATE: 07/17/2018 11:21 AM EDT AGE/SEX: 48 years / Female INDICATIONS:Angina. Myocardial infarction Substernal chest pain. CLINICAL DATA: This is the patient's initial encounter. Patient reports that signs and symptoms have been present for 1 day and indicates a pain score of 4/10. MEDICAL/SURGICAL HISTORY: Diabetes mellitus type II. Chronic obstructive pulmonary disease. Ch iari malformation. . Gastric sleeve. COMPARISON: No prior exams available for comparison. DOSE: 30.5 mCi Tc 99m Myoview at rest 30.1 mCi [id number] at stress 0.4 mg Lexiscan STRESS SYMPTOMS: Nausea and shortness of breath. EJECTION FRACTION: 54 % TECHNIQUE: The patient underwent pharmacologic stress with infusion of prescribed dose. Continuous ECG tracing was monitored during stress. Gated SPECT imaging was performed after stress and conventi onal SPECT imaging was performed at rest. The examination was performed on a SPECT/CT scanner, both attenuation and non-corrected datasets were reviewed. FINDINGS: Fixed defect is seen in the anterior myocardium extending to the apex. There is minimal redistributio n in the mid septum extending towards the base involving a small segment of myocardium. Ejection fraction is 54% with minimal hypokinesis in the small basal segment. RISK CATEGORY: Low (<1% Annual Motality Rate) CONCLUSION: 1. Minimal redistribution small segment of myocardium mid septum extending towards the base. Electronically signed by: Khoa Helms MD 07/17/2018 11:25 AM EDT
--- NOTE | 2018-07-17 14:17 | ECHRPT ---
Indication: CHEST PAIN CONCLUSIONS Normal left ventricular size. No regional wall motion abnormalities are present. Wall thickness is measured at the upper limits of normal. The left ventricular systolic function is low normal with an estimated ejection fraction of 50%. Trace mitral valve regurgitation. BP: / HR: Rhythm: Technical Quality: FINDINGS LEFT VENTRICLE Normal left ventricular size. No regional wall motion abnormalities are present. Wall thickness is measured at the upper limits of normal. The left ventricular systolic function is low normal with an estimated ejection fraction of 50%. RIGHT VENTRICLE Normal right ventricular size and systolic function. LEFT ATRIUM The left atrial size is normal. RIGHT ATRIUM The right atrial size is normal. ATRIAL SEPTUM Normal atrial septal thickness without atrial level shunting by limited color doppler interrogation. AORTA The aortic root and proximal ascending aorta are normal in size on limited imaging. MITRAL VALVE Trace mitral valve regurgitation. AORTIC VALVE Trileaflet aortic valve. No aortic valve stenosis or regurgitation. TRICUSPID VALVE Structurally normal tricuspid valve. No tricuspid valve stenosis or regurgitation. PULMONARY VALVE The pulmonary valve is not well visualized. VESSELS The inferior vena cava is normal in size. PERICARDIUM No pericardial effusion. Rufino Haddad MD (Electronically Signed) Final Date:17 July 2018 14:16
[2018-07-17] MEDS: Doxycycline Inj 200 MG in Sodium Chlor 0.9% Inj 250 ML IV.SIG SCH ×2 (14:28→18:25)
[2018-07-17] MEDS ORDERED: Heparin Drip 25,000 UNIT/250 ML BAG IV.CONT PRN (14:33)
[2018-07-17] MEDS ORDERED: fentaNYL Citrate Inj 100 MCG/2 ML Ampul IV.PUSH SCH (15:15)
--- NOTE | 2018-07-17 15:37 | MB ---
cc: Rufino Haddad MD DATE: 07/17/2018 REASON FOR CONSULTATION: Abnormal nuclear stress test, chest pain. HISTORY OF PRESENT ILLNESS: The patient is a 48-year-old white female with a history of COPD, Chiari malformation, diabetes, irritable bowel syndrome, gout, gastroesophageal reflux disease, who presented to the hospital initially with complaints of right buttock pain. In addition, she was having fevers at home as high as 102 degrees. She was found to have probable cellulitis. In the last 2 weeks, she has had intermittent episodes of chest discomfort. She describes 2 types of chest pains, one of which is more upper midline in location, described as "sharp" and "heavy pressure" sometimes lasting most of the day and occasionally associated with shortness of breath without nausea or diaphoresis. She also describes another chest discomfort, left inframammary in location, described as "tightness" usually lasting less than 2 minutes, sometimes radiating to her left upper arm without associated shortness of breath, nausea or diaphoresis. The chest pains have had no clear relationship to exertion, although she has noted that they are more severe in intensity when they occur while doing activities. The patient denies syncope or near syncope, although she has had intermittent moderate lightheadedness, lasting a few seconds, usually while standing, although rarely while supine. She also reports mild dependent edema in the last couple of weeks. The patient denies paroxysmal nocturnal dyspnea or palpitations. PAST MEDICAL HISTORY: 1. COPD. 2. Chiari malformation. 3. Diabetes. 4. Irritable bowel syndrome. 5. Gastroesophageal reflux disease. 6. Gout. PAST SURGICAL HISTORY: 1. Appendectomy. 2. section. 3. Bilateral tubal ligation. 4. Hemorrhoidectomy. CARDIAC MEDICATIONS AT HOME: 1. Propranolol 120 mg daily. 2. Lovastatin 10 mg daily. 3. Lisinopril 40 mg daily. ALLERGIES: 1. MORPHINE. 2. ASPIRIN. 3. CODEINE. 4. OFLOXACIN. 5. VICODIN. 6. ORAJEL. 7. RED WINE. FAMILY HISTORY: The patient's mother sustained a myocardial infarction in her 50s, eventually passing away from complications of congestive heart failure and coronary artery disease at age 53. SOCIAL HISTORY: The patient quit smoking about 8 years ago. She denies alcohol abuse. REVIEW OF SYSTEMS: As in the history of present illness, otherwise negative or noncontributory. She also denies headache, abdominal pain, melena, dyspepsia, bright red blood per rectum. PHYSICAL EXAMINATION: VITAL SIGNS: Blood pressure 176/83 with a pulse of 51, respirations 18. GENERAL: She is a well-developed, well-nourished white female, in no acute distress. NECK: Jugular venous pressure is hard to assess. Carotid pulses are 2+ bilaterally and without bruits. CHEST: Reveals clear lungs estrada. CARDIAC: She has a regular rhythm and rate without S3, S4, or murmur. ABDOMEN: She has a soft, obese, nontender abdomen. Bowel sounds are present. There is no definite hepatosplenomegaly. EXTREMITIES: Reveals no clubbing, cyanosis or edema. Peripheral pulses are normal throughout. LABORATORY DATA: EKG from 07/15/2018 shows sinus bradycardia, otherwise normal EKG. LABORATORY DATA: Includes potassium 4.0, BUN 14, creatinine 0.70. Negative cardiac enzymes. WBC 6.0, hemoglobin 10.1, platelets 259. IMPRESSION: Chest pains, abnormal nuclear stress test in this 48-year-old white female with a history of chronic obstructive pulmonary disease, Chiari malformation, diabetes, irritable bowel syndrome. The patient describes 2 types of chest discomfort, most of which is atypical for myocardial ischemia. However, some of the episodes are more suggestive of angina occurring with minimal to no exertion. She does have a number of risk factors for coronary disease including history of tobacco abuse, diabetes, family history. The patient's nuclear stress test pictures have been reviewed. I actually do not see the reported tiny area of septal ischemia. The benign appearance of the nuclear stress test pictures could be due to "balanced ischemia" due to multivessel coronary artery disease. Overall, I have recommended she undergo a cardiac catheterization with possible percutaneous coronary intervention. The nature of these procedures and potential risks including, but not limited to , myocardial infarction, stroke, arrhythmia, bleeding, infection, and renal failure have been outlined to the patient. She agrees to proceed. RECOMMENDATIONS: 1. Would resume her lisinopril. 2. Continue beta charlie therapy. 3. Will question the patient further regarding her aspirin allergy. 4. Cardiac catheterization tomorrow morning. 5. Check a fasting lipid profile. MD FERNANDA Sheldon/es , 03:00 PM , 03:13 PM [email or web address]
[2018-07-17] MEDS ORDERED: Doxycycline Inj 200 MG in Sodium Chlor 0.9% Inj 250 ML IV.SIG SCH (16:00)
[2018-07-17 16:33] LABS: Hematocrit 30.6 % (35.0-46.0); Hemoglobin 10.1 gm/dL (11.6-15.3); Mean Corpuscular Hemoglobin 28.1 pg (27.0-34.0); Mean Corpuscular Volume 85.2 fL (80.0-100.0); Mean Platelet Volume 9.2 fL (7.0-11.0); Platelet Count 290 th/mm3 (150-450); Red Blood Count 3.59 mil/mm3 (4.00-5.30); White Blood Count 8.1 th/mm3 (4.0-11.0)
[2018-07-17 16:44] LABS: Activated Partial Thrombo Time 25.9 sec (24.3-30.1); Prothrombin Time 10.1 sec (9.8-11.6)
--- NOTE | 2018-07-17 21:46 | ECG ---
Date Performed: 07/15/2018 Time Performed: 19:43:19 PTAGE: 48 years EKG: SINUS BRADYCARDIA BORDERLINE ECG PREVIOUS TRACING : 07/15/2018 14.39 Since the previous tracing, no significant change noted DOCTOR: Adam Sweeney Interpretating Date/Time 07/17/2018 21:45:34
--- NOTE | 2018-07-17 21:46 | ECG ---
Date Performed: 07/15/2018 Time Performed: 14:39:03 PTAGE: 48 years EKG: SINUS BRADYCARDIA BORDERLINE ECG PREVIOUS TRACING : 07/15/2018 09.30 Since the previous tracing, no significant change noted DOCTOR: Adam Sweeney Interpretating Date/Time 07/17/2018 21:45:45
[2018-07-18] MEDS ORDERED: Heparin 10,000 UNITS/10 ML Vial (for IV use) IV.PUSH PRN ×2 (01:00)
[2018-07-18] MEDS ORDERED: Sod Chloride 0.9% Inj 1,000 ML IV.CONT SCH (01:45)
[2018-07-18] MEDS: Doxycycline Inj 200 MG in Sodium Chlor 0.9% Inj 250 ML IV.SIG SCH (03:19)
[2018-07-18] MEDS: oxyCODONE/Acetaminophen 10/325 Tablet PO PRN ×2 (06:39→12:47)
[2018-07-18] MEDS ORDERED: Heparin/NS PF Inj 1,500 ML ONE (07:20)
[2018-07-18] MEDS ORDERED: Heparin 10,000 UNITS/10 ML Vial (for IV use) ONE (07:21)
[2018-07-18] MEDS ORDERED: fentaNYL Citrate Inj 100 MCG/2 ML Ampul ONE (07:41)
--- NOTE | 2018-07-18 08:02 | P.PNCA ---
Subjective Interval history: Mild chest discomfort and lightheadedness this morning. No dyspnea, palpitations. Physical Exam Vital signs: Vital Signs 07/17/18 12:00 07/17/18 16:00 07/17/18 20:00 Temperature 98.7 F 99.3 F 98.3 F Pulse Rate 51 L 49 L 52 L Respiratory Rate 18 17 17 Blood Pressure 176/83 H 121/65 134/64 Pulse Oximetry 95 98 96 07/18/18 00:00 07/18/18 04:48 Temperature 98.2 F 98.1 F Pulse Rate 53 L 52 L Respiratory Rate 17 17 Blood Pressure 151/76 H 130/65 Pulse Oximetry 96 94 L Intake & Output 07/17/18 07/18/18 07/18/18 18:59 06:59 18:59 Intake Total 500 / 500 1200 / 1200 Output Total 5 / 5 Balance 495 / 495 1200 / 1200 Weight 120 kg Intake: IV 500 / 500 Doxy 100 Inj 200 MG In NS Inj 500 / 500 250 ML @ 125 mls/hr IV.SIG Q12H ZHANNA Rx#:[id number] Oral 500 / 500 700 / 700 Output: Urine 5 / 5 Other: # Voids 2 Date of Last Bowel Movement 07/17/18 - Constitutional no acute distress - Routine Neck Exam Absent: JVD - Routine Respiratory Exam Present: CTA bilaterally - Routine Cardiovascular Exam Present: RRR, S1, S2. Absent: murmur, gallop - Routine Abdominal Exam Present: soft, normoactive bowel sounds. Absent: tenderness, organomegaly - Routine Extremities Exam Absent: cyanosis, clubbing, edema Assessment and Plan - Assessment (1) Chest pain Code(s): R07.9 - Chest pain, unspecified Status: Acute Plan: Stable overnight. Brief recurrent atypical CP this morning. Minimal LAD disease on cath this morning. Recommend non-cardiac CP evaluation as outpatient. (2) Bradycardia Code(s): R00.1 - Bradycardia, unspecified Status: Chronic Plan: Patient's HR's ~40's (sinus bradycardia). Mild intermittent lightheadedness. Recommend consider completely stopping Inderal. - Plan Code Status: full code Discussed Condition With: patient (1) Chest pain Qualifiers: Chest pain type: unspecified Qualified Code(s): R07.9 - Chest pain, unspecified
[2018-07-18] MEDS ORDERED: Iohexol 350 MG/ML 100 ML Vial (for Cath Lab) IVCONTRAST ONE (08:41)
[2018-07-18] MEDS: Insulin NovoLOG Aspart Correctional Sugar Inj SQ SCH ×2 (10:25→12:47)
--- NOTE | 2018-07-18 10:42 | MA ---
cc: Rufino Haddad MD DATE: 07/18/2018 PROCEDURE: Left heart catheterization, selective coronary angiography, left ventriculography. PROCEDURE NOTES: The patient was brought to the cardiac catheterization laboratory in a fasting state after having signed informed consent. The right radial region was prepped and draped as per policy and anesthetized with 1% lidocaine. Arterial access was obtained via the right radial artery and a 6-Wallisian sheath placed. Coronary arteriography was performed using a [place] catheter. Left ventriculography was done using a multipurpose catheter. There were no apparent, immediate complications. A radial artery compression band was applied to her right wrist at the end of the case to achieve good hemostasis. HEMODYNAMIC DATA: Left ventricle 118 with an end diastolic pressure of 15. Aorta 120/44 with a mean of 81. There was no significant transvalvular aortic gradient on pullback of the pigtail catheter. CORONARY ARTERIOGRAPHY: The left main is normal. The left anterior descending is a medium-sized vessel giving rise to 2 relatively small diagonals. There are minimal luminal irregularities in the proximal to mid LAD. The left circumflex is a relatively small vessel giving rise to a large obtuse marginal. No disease is seen in the left circumflex system. The right coronary artery is a large, dominant vessel with no disease. LEFT VENTRICULOGRAPHY: Contrast injection of the left ventricle reveals no segmental wall motion abnormalities. Ejection fraction is estimated at 65%. CONCLUSIONS: 1. Minimal left anterior descending disease, otherwise angiographically normal coronary arteries. 2. Right dominant system. 3. Normal left ventricular function with estimated ejection fraction of 65%. MD FERNANDA Sheldon/jessica/isabel , 07:57 AM , 08:01 AM EMETERIO
[2018-07-18] MEDS: Pantoprazole Sodium 20 MG DR Tablet PO SCH (12:49)
[2018-07-18] MEDS: Gabapentin 300 MG Capsule PO SCH (12:49)
[2018-07-18] MEDS: Senna/Docusate Sodium 8.6/50 MG Tablet PO SCH (12:50)
--- NOTE | 2018-07-18 14:29 | P.PNIM ---
Subjective Interval history: Patient says she is feeling all right. Denies any chest pain shortness of breath. Like to go home. Physical Exam Vital signs: Vital Signs 07/17/18 16:00 07/17/18 20:00 07/18/18 00:00 Temperature 99.3 F 98.3 F 98.2 F Pulse Rate 49 L 52 L 53 L Respiratory Rate 17 17 17 Blood Pressure 121/65 134/64 151/76 H Pulse Oximetry 98 96 96 07/18/18 04:48 07/18/18 08:10 07/18/18 13:12 Temperature 98.1 F 98.4 F Pulse Rate 52 L 55 L Respiratory Rate 17 18 Blood Pressure 130/65 145/97 H Pulse Oximetry 94 L 95 97 Intake & Output 07/17/18 07/18/18 07/18/18 18:59 06:59 18:59 Intake Total 500 / 500 1200 / 1200 15 / 15 Output Total 5 / 5 Balance 495 / 495 1200 / 1200 15 / 15 Weight 120 kg Intake: IV 500 / 500 15 / 15 Heparin/NS PF Inj 1,500 ML @ 0 15 / 15 mls/hr .ROUTE .[facility] Rx#: [id number] Doxy 100 Inj 200 MG In NS Inj 500 / 500 250 ML @ 125 mls/hr IV.SIG Q12H COUNTS INCLUDE 234 BEDS AT THE [facility] Rx#:[id number] Oral 500 / 500 700 / 700 Output: Urine 5 / 5 Other: # Voids 2 Date of Last Bowel Movement 07/17/18 Narrative: GENERAL: Well-nourished, well-developed adult female in no obvious distress. Alert and oriented 3. Exam unchanged from yesterday. SKIN: Warm and dry. Right gluteal redness/induration w/ excoriation. improving. HEAD: Atraumatic. Normocephalic. CARDIOVASCULAR: Regular rate and rhythm. No chest wall tenderness. RESPIRATORY: No accessory muscle use. Clear to auscultation. Breath sounds equal bilaterally. GASTROINTESTINAL: Abdomen soft, non-tender, non-distended. Positive bowel sounds. MUSCULOSKELETAL: Extremities without clubbing, cyanosis, or edema. No obvious deformities. NEUROLOGICAL: Awake and alert. No obvious cranial nerve deficits. Motor grossly within normal limits. Normal speech. PSYCHIATRIC: Appropriate mood and affect; insight and judgment good. Results - Labs CBC & Chem 7: 07/17/18 16:18 07/17/18 06:13 Laboratory Results - last 24 hr 07/17/18 07/17/18 07/17/18 16:18 16:18 17:59 WBC 8.1 RBC 3.59 L Hgb 10.1 L Hct 30.6 L MCV 85.2 MCH 28.1 MCHC 33.0 RDW 14.0 Plt Count 290 MPV 9.2 PT 10.1 INR 1.0 APTT 25.9 POC Glucose 178 H 07/17/18 07/18/18 07/18/18 21:26 00:03 12:39 WBC RBC Hgb Hct MCV MCH MCHC RDW Plt Count MPV PT INR APTT 26.8 POC Glucose 180 H 155 H Assessment and Plan - Assessment (1) SIRS (systemic inflammatory response syndrome) Code(s): R65.10 - Systemic inflammatory response syndrome (SIRS) of non- infectious origin without acute organ dysfunction Status: Acute (2) Cellulitis Code(s): L03.90 - Cellulitis, unspecified Status: Acute (3) DM (diabetes mellitus) Code(s): E11.9 - Type 2 diabetes mellitus without complications Status: Acute - Plan //Suspected sepsis: Temp 102, WBC 11.6, Source-Right gluteal cellulitis, follow up cultures, continue IV Abx, repeat labs in am. = 07/15. Improving. Continue IV vancomycin. Can start on doxycycline at discharge. = 07/16. Switch to doxycycline. = 07/17. Continue doxycycline to complete treatment course. Patient advised to follow-up with primary care for continued monitoring. = 07/18. Continue doxycycline course. // Right Gluteal Cellulitis: s/p spontaneous drainage, check Wound/Blood Cultures, IVF, Vanc/Zosyn, blood cultures no growth, wound culture staph aureus MRSA. We will initiate isolation. CT did not show abscess. = Sensitive to tetracyclines. = 07/16. Start on Doxy. ///Chest pain beginning overnight around 2 AM on 07/15. = Patient allergic to aspirin. Trend EKGs and troponins. = EKG was some baseline ST changes. Troponins negative. Patient unlikely to achieve 5 mets. Lexiscan. = Pending Lexiscan results. = Lexiscan with some septal abnormality. Status post cardiac cath with minimal LAD disease. No syncopal disease. Discontinue propranolol as per cardiology recommendations. Noncardiac chest pain workup as outpatient. //DM: Sliding scale w/ Accu-Cheks, hold Metformin for now //Back pain - US ordered to rule out additional infection. Ultrasound normal. Back pain has resolved. Discharge Planning: Doxycycline to complete treatment course.
--- NOTE | 2018-07-18 14:47 | P.DS ---
Date of admission: 07/12/18 01:28 Primary care physician: No Primary Care Physician Brief History from admission: This is a 48-year-old female with a PMH of DM, COPD, Gout and IBS presented to the ER with complaints of right gluteal pain x4 days. Reports right buttock pain and swelling, pain is constant, severe, 10/10, non-radiating. Notes associated fever of 102 at home. Denies injury or trauma to site. On arrival, BP 170/69, HR 83, O2 sat 100% on RA, Temp 100.3. BC 11.6. Chemistry unremarkable except for GFR 83. Lactic Acid normal. CT Abdomen/Pelvis with induration of posterior medial right gluteal subcutaneous fat consistent with inflammatory change, no abscess seen. S/p Vanc/Zosyn in ER DS: Diagnosis - Discharge Diagnosis (1) SIRS (systemic inflammatory response syndrome) Status: Acute (2) Cellulitis Status: Acute (3) DM (diabetes mellitus) Status: Acute DS: Medications - Discharge Medications Prescriptions: doxycycline hyclate 100 mg PO BID 7 Days #14 cap oxycodone-acetaminophen 1 tab PO Q6H PRN #12 tab PRN Reason: Acute Pain DS: Summary Hospital Course: Patient presented with sepsis. Patient found to have right gluteal cellulitis with spontaneous drainage. This improved with broad-spectrum antibiotics. Wound culture grew MRSA sensitive to doxycycline. Patient will discharge home on doxycycline to complete treatment course. Patient complained of vague atypical chest pain during admission, due to risk factors of diabetes and past smoking, Lexiscan was ordered and although a low risk did show possible septal abnormality. Cardiology was consulted, patient underwent cardiac catheterization with slight atherosclerosis of LAD, however no stent will disease. Patient is allergic to aspirin. As per cardiology recommendations due to bradycardia will decrease propranolol with the intention of discontinuing. For problem based summary from most recent progress note, please see below. //Suspected sepsis: Temp 102, WBC 11.6, Source-Right gluteal cellulitis, follow up cultures, continue IV Abx, repeat labs in am. = 07/15. Improving. Continue IV vancomycin. Can start on doxycycline at discharge. = 07/16. Switch to doxycycline. = 07/17. Continue doxycycline to complete treatment course. Patient advised to follow-up with primary care for continued monitoring. = 07/18. Continue doxycycline course. // Right Gluteal Cellulitis: s/p spontaneous drainage, check Wound/Blood Cultures, IVF, Vanc/Zosyn, blood cultures no growth, wound culture staph aureus MRSA. We will initiate isolation. CT did not show abscess. = Sensitive to tetracyclines. = 07/16. Start on Doxy. ///Chest pain beginning overnight around 2 AM on 07/15. = Patient allergic to aspirin. Trend EKGs and troponins. = EKG was some baseline ST changes. Troponins negative. Patient unlikely to achieve 5 mets. Lexiscan. = Pending Lexiscan results. = Lexiscan with some septal abnormality. Status post cardiac cath with minimal atherosclerosis, however no significant coronary artery disease disease. No syncopal disease. Discontinue propranolol as per cardiology recommendations. Noncardiac chest pain workup as outpatient. //DM: Sliding scale w/ Accu-Cheks, hold Metformin for now //Back pain - US ordered to rule out additional infection. Ultrasound normal. Back pain has resolved. - Time Spent with Patient Total time spent providing and/or coordinating discharge services: Greater than 30 minutes - Quality: VTE Deep Vein Thrombosis/Pulmonary Embolism Present on Admission: No Exam Vital signs: Vital Signs 07/17/18 16:00 07/17/18 20:00 07/18/18 00:00 Temperature 99.3 F 98.3 F 98.2 F Pulse Rate 49 L 52 L 53 L Respiratory Rate 17 17 17 Blood Pressure 121/65 134/64 151/76 H Pulse Oximetry 98 96 96 07/18/18 04:48 07/18/18 08:10 07/18/18 13:12 Temperature 98.1 F 98.4 F Pulse Rate 52 L 55 L Respiratory Rate 17 18 Blood Pressure 130/65 145/97 H Pulse Oximetry 94 L 95 97 Intake & Output 07/17/18 07/18/18 07/18/18 18:59 06:59 18:59 Intake Total 500 / 500 1200 / 1200 15 / 15 Output Total 5 / 5 Balance 495 / 495 1200 / 1200 15 / 15 Weight 120 kg Intake: IV 500 / 500 15 / 15 Heparin/NS PF Inj 1,500 ML @ 0 15 / 15 mls/hr .ROUTE .[facility] Rx#: [id number] Doxy 100 Inj 200 MG In NS Inj 500 / 500 250 ML @ 125 mls/hr IV.SIG Q12H [facility] Rx#:[id number] Oral 500 / 500 700 / 700 Output: Urine 5 / 5 Other: # Voids 2 Date of Last Bowel Movement 07/17/18 Results Procedures completed during hospitalization: Cardiac catheterization. Please see report. Labs on day of discharge: Labs from last 24 hours 07/18/18 07/18/18 07/17/18 12:39 00:03 21:26 WBC RBC Hgb Hct MCV MCH MCHC RDW Plt Count MPV PT INR APTT 26.8 POC Glucose 155 H 180 H 07/17/18 07/17/18 07/17/18 17:59 16:18 16:18 WBC 8.1 RBC 3.59 L Hgb 10.1 L Hct 30.6 L MCV 85.2 MCH 28.1 MCHC 33.0 RDW 14.0 Plt Count 290 MPV 9.2 PT 10.1 INR 1.0 APTT 25.9 POC Glucose 178 H - Impressions ITS Impressions Abdomen/Pelvis CT 07/12/18 00:00 CONCLUSION: Induration within the posterior medial right gluteal subcutaneous fat consistent with inflammatory change. An abscess is not seen. Chest Ultrasound 07/13/18 00:00 CONCLUSION: 1. No left pleural effusion. Myocardial Perfusion Scan Nuc Med 07/16/18 00:00 CONCLUSION: 1. Minimal redistribution small segment of myocardium mid septum extending towards the base. Discharge Plan - Discharge Disposition Patient Disposition: 01 Discharge Home - Discharge Condition Condition: Stable - Discharge Order Discharge Orders: Discharge Order (Routine); Ordered 07/18/18 Ordered By: Blaise Khan Cardiology Clear for Discharge (Routine); Ordered 07/18/18 Ordered By: Rufino Haddad - Physicians Team Primary Care Provider: Primary Care Physici,No Attending Provider: Blaise Khan Other Providers: Rufino Haddad MD
== END 2018-07-18 15:20 | disposition home or self-care (01) ==
LOC: NEPD 18:34 → NEDA 07-12 01:28 → NEPHCDU 07-12 07:55 → N07 07-14 15:37
PROVIDERS: ADMIT Internal Medicine; ATTEND Internal Medicine